=== PATIENT | male | born 1945 | race Caucasian/White ===

== ENCOUNTER → 2016-10-22 16:15 | Emergency (ER) | payer MEDICARE ==
[~2016-10-22 16:15] MED LIST: ACETAMINOPHEN650 M3 PO; ALBUTEROL MININEB NEB; ANTIVERT; APAP325 MG PO; ASPIRIN81 MG PO; BENZONATATE PO; COMBIVENT U/D3 M1 INH; DIAZEPAM PO; FAMOTIDINE PO; FLEXERIL10 M1 PO; FLONASE 0.05% N16 G1; FLONASE16 GM; FOLIC ACID1 MG PO; HYDROCODON-ACE1 EAC7 PO; LIMBREL 500 MG500 MG; LIPITOR20 MG PO; MEDROL DOSEPAK4 MG PO; METOPROLOL TAR25 MG PO; MULTI-VITAMIN1 EAC1 PO; MULTIVITAMINS1 EAC3 PO; NICOTINE TRANSD14 MG TOP; NO MEDICATIONS; NORVASC PO; OMEPRAZOLE20 M2 PO; OMEPRAZOLE40 M1 PO; PERCOCET 5-3251 TAB PO; PREDNISOLONE SO10 MG PO; PREDNISONE PO; PREDNISONE10 MG PO; PRILOSEC PO; PROZAC10 M1 PO; QVAR7.3 G1 INH; RESTORIL7.5 MG PO; SAW PALMETTO160 MG PO; SPIRIVA RESPIMAT4 G1; SUDAFED30 M1 PO; SYMBICORT INH; SYMBICORT80 INH; TESSALON PERLE100 M1 PO; THIAMINE HCL100 M2 PO; TYLENOL325 M1 PO; VENTOLIN5 MG/ML INH; VICODIN 5/500 T1 TAB PO; VICODIN PO
== END | disposition left against medical advice (07) ==
LOC: CED 16:15
DX: Z53.21 Procedure and treatment not carried out due to patient leaving prior to being seen by health care provider (principal)

== ENCOUNTER 2016-10-24 03:30 | Inpatient (IN) | payer MEDICARE ==
--- NOTE | ~2016-10-24 | DS ---
Unit #: [id number] #: [id number] Patient: MALENA FRIEND [id number] [address] [address] [id number] I MR#: [id number] NAME: MALENA FRIEND. ROOM: [facility] Age: 71 Sex: M Admission Date: 10/24/2016 : 1945 Discharge Date: 11/04/2016 Attending Physician: Florian Baker M.D. Primary Care Physician: No Primary Care Physician DISCHARGE SUMMARY ADDENDUM Please see my discharge summary from 11/04/2016. Afterwards, the patient was re-evaluated by physical and occupational therapy. He began having safe ambulation with the use of a walker and, therefore, patient was informed that he was stable to be discharged home. He requested home discharge and, therefore, appropriate arrangements were made for him to be transitioned home with home health to follow at time of discharge as well as a walker to be provided for him prior to discharge. The remainder of his hospital course, medications, do remain unchanged. He will follow up with his primary care physician in seven to ten days for routine care. He was strongly advised to stop drinking alcohol altogether. Dictated by... Kelechi Benton/olu TD: 11/05/2016 11:04 JOB #: [id number] DISCHARGE SUMMARY Page 1 of 1 X Florian Baker MD X DISCHARGE SUMMARY
--- NOTE | ~2016-10-24 | CO ---
Unit #: [id number] #: [id number] Patient: MALENA CARRASCO [id number] [address] [place], [place] [address] [id number] Maulik MR#: [id number] NAME: MALENA CARRASCO. ROOM: 556 Age: 71 Sex: M Admission Date: 10/24/2016 : 1945 Attending Physician: Florian Baker M.D. Primary Care Physician: Primary Care Physician No Consultation Date: 10/28/2016 CONSULTATION REPORT REASON FOR CONSULTATION Abnormal labs. HISTORY OF PRESENTING ILLNESS Mr. Carrasco is a 71-year-old gentleman, who was admitted after a fall, possible syncopal episode, was found to have carotid artery stenosis and is undergoing evaluation to undergo surgery for the same. He also has cardiac evaluation prior to surgery and was cleared for the surgery. The patient has been having trouble swallowing, he says, for the last several years, it is mostly in the throat and choking episodes. He does have lower abdominal pain also, which is chronic. His CEA was elevated to 5.8, and I was called in for colonoscopy evaluation particularly. The patient has chronic constipation, however, denies any bleeding. His last colonoscopy was over 5 years ago, does not remember the findings exactly. PAST MEDICAL HISTORY Significant for COPD, chronic GERD symptoms, chronic back pain, hypertension, smoker, history of drug abuse, multiple surgeries on the back and neck. MEDICATIONS List reviewed. REVIEW OF SYSTEMS A complete 10-point review of systems was done, which is unremarkable other than as mentioned above. PHYSICAL EXAMINATION GENERAL: No acute distress. VITAL SIGNS: Stable. Currently, afebrile. Temperature 97, pulse 90, blood pressure 152/82. HEENT: Pupils equal and reactive. Sclerae anicteric. Oral mucosa moist. NECK: No JVD. No lymphadenopathy. CHEST: Clear to auscultation bilaterally. CARDIOVASCULAR: Regular rate and rhythm. No murmurs. ABDOMEN: Soft, nontender, and nondistended. EXTREMITIES: Without clubbing, cyanosis, or edema. NEUROLOGIC: Intact. SKIN: Warm and dry. DIAGNOSTIC STUDIES LABORATORY RESULTS: Hemoglobin of 12. Chemistries unremarkable. CEA level of 5.8. White count at 17,000. Unit #: [id number] #: [id number] Patient: MALENA CARRASCO ASSESSMENT AND PLAN 1. The patient with chronic constipation and elevated CEA levels at his age. Risk of colon cancer remains have. We will recommend colonoscopy for evaluation. He has been cleared by Cardiology. So, we will plan on doing a colonoscopy tomorrow after prepping him today. 2. Chronic mild dysphagia and chronic gastroesophageal reflux disease symptoms. It will be prudent to have an upper endoscopy at the same time while he undergoes anesthesia. The patient is agreeable for the procedures. We will plan on doing it tomorrow. 3. Carotid artery stenosis. Surgery planned. 4. History of syncopal episode, resolved. Thank you Dr. Baker for this interesting consult. We will follow along. Dictated by... Kelechi Gary/mayda TD: 10/28/2016 19:31 JOB #: [id number] CONSULTATION REPORT Page 1 of 1 X Hilario Ortiz MD X CONSULTATION REPORT
--- NOTE | ~2016-10-24 | ST ---
Unit #: [id number] #: [id number] Patient: MALENA FRIEND [id number] [facility]. [facility] [address] [facility]. [place], [place] [address] [id number] I MR#: [id number] NAME: MALENA FRIEND : 1945 SEX: M STUDY DATE/TIME: 10/28/2016 UNIT: C5B ROOM: 556 STUDY DESCRIPTION: Cardiac stress test Attending Physician: Florian Baker M.D. Primary Care Physician: No Primary Care Physician CARDIOLOGY REPORT EXAM Lexiscan Cardiolite stress test. PROCEDURE Baseline EKG normal sinus rhythm with ventricular rate 73 beats per minute, early repolarization, left ventricular hypertrophy, occasional premature ventricular contractions and occasional premature atrial contractions. Lexiscan is a 4 minute test with Lexiscan being injected within the first minute followed by Cardiolite. EKG during the test showed some nonspecific ST-T wave abnormalities. Nothing acute. The patient had Q waves in V1 and 2. Low voltage in V1 and V2 and in AVL on baseline. Maximum heart rate response was 116 beats per minute with a maximum blood pressure response of 173/84 mmHg. The patient had no complaints of chest pain, palpitations or dizziness. Had increased shortness of breath and fatigue which resolved in recovery phase. Cardiolite was injected after Lexiscan, within the first minute of the test. Radionuclide test pending. Please correlate with nuclear images. Dictated by... Doreen Bobo A.P.R.N. for Kelechi Lopez/leslie TD: 10/28/2016 11:41 JOB #: [id number] CC: [facility] CARDIOLOGY REPORT Page 1 of 1 X Doreen Bobo APRN CARDIOLOGY REPORT
--- NOTE | ~2016-10-24 | DS ---
Unit #: [id number] #: [id number] Patient: MALENA FRIEND [id number] [facility] [address] [facility]. [place], [place] [address] [id number] I MR#: [id number] NAME: MALENA FRIEND. ROOM: [facility] Age: 71 Sex: M Admission Date: 10/24/2016 : 1945 Discharge Date: 11/04/2016 Attending Physician: Florian Baker M.D. Primary Care Physician: No Primary Care Physician DISCHARGE SUMMARY REASON FOR ADMISSION Status post fall, left rib fractures, splenic hematomas, pneumothorax. HISTORY OF PRESENT ILLNESS The patient is a 71-year-old male with a longstanding history of alcohol abuse and COPD, frequent falls at home, who stated that he had a syncopal episode at home. He subsequently began developing left sided chest pain. He presented to the ER for further evaluation. Initial chest x-ray was performed which showed multiple left rib fractures as well as a left apical pneumothorax. Also, was present with subcapsular splenic hematomas. He was admitted for the same. He was placed on telemetry floor in regards to his splenic hematoma. Consultation was placed to [facility]. No operative management was recommended and only observation. In regards to his multiple left rib fractures as well as pneumothorax, consultation was placed to Dr. Chavez, Thoracic Surgery Services. The patient was observed and pneumothorax resolved with no acute intraoperative management. We also placed consultation to Dr. Iglesias, Pulmonary Services, who continued to follow the patient secondary to underlying history of COPD. Secondary to his frequent falls at home, routine radiological studies including CT head as well as ultrasound of carotids were performed. Ultrasound of carotid on right side did yield carotid stenosis and, therefore, consultation was placed to Vascular Services. Dr. Liang performed carotid endarterectomy. Postoperatively, patient otherwise did well. Please see their operative note for details. Secondary to failure to thrive, weight loss as well as anemia, we placed consultation to Dr. Ortiz of Gastroenterology Services. The patient underwent upper and lower endoscopic procedures, both of which did not show any acute process. There was mild gastritis which was noted. Polyps, two, were noted. Both were sent for histopathology. Of note, preoperatively secondary to alcohol abuse, we did place consultation to cardiology services. [facility] did see and Unit #: [id number] #: [id number] Patient: MALENA FRIEND evaluate patient and ultimately underwent stress test evaluation which was negative for acute ischemia. Initially, secondary to alcohol abuse, we did place the patient on CIWA protocol. He did not exhibit any acute DTs while he was present here in the hospital. Secondary to chronic deconditioning, patient residing home alone, frequent falls. Physical and occupational services both recommended subacute rehab at time of discharge. Plans later this afternoon for the patient to be transitioned to rehab once bed available. FINAL DISCHARGE DIAGNOSES 1. Acute hypoxic respiratory failure, now resolved. 2. Status post fall with resultant left sided rib fractures. 3. Small apical pneumothorax, now resolved. 4. Splenic hematomas. 5. Right sided carotid stenosis, status post carotid endarterectomy by Dr. Liang. 6. Anemia, baseline hemoglobin 12. 7. Longstanding history of alcohol abuse. 8. Dysphagia with appropriate dietary modifications for speech therapy. 9. Failure to thrive. 10. Chronic deconditioning. FINAL DISCHARGE MEDICATIONS 1. Tylenol 650 mg p.o. q.6 p.r.n. 2. Prednisone 10 mg p.o. daily x3 days. 3. Symbicort 160/4.5, two puffs b.i.d. 4. DuoNeb aerosol solution q.6 hours scheduled. 5. Restoril 15 mg p.o. q. h.s. 6. Norvasc 5 mg p.o. b.i.d. 7. Lopressor 25 mg p.o. b.i.d. 8. Lipitor 20 mg p.o. q. h.s. 9. Pepcid 20 mg p.o. b.i.d. 10. Multivitamin daily. 11. Aspirin 81 mg p.o. daily. 12. Bradgate 5/325, one to two tablets p.o. q.6 p.r.n. DISCHARGE CONDITION Stable. DISCHARGE DISPOSITION Rehab. Dictated by... Kelechi Benton/olu TD: 11/04/2016 09:50 JOB #: [id number] Unit #: [id number] #: [id number] Patient: MALENA FRIEND DISCHARGE SUMMARY Page 1 of 1 X Florian Baker MD DISCHARGE SUMMARY
--- NOTE | ~2016-10-24 | TH ---
Unit #: [id number] #: [id number] Patient: MALENA FRIEND [id number] [address] [address] [id number] I MR#: [id number] NAME: MALENA FRIEND : 1945 SEX: M STUDY DATE/TIME: 10/28/2016 UNIT: C5B ROOM: 556 STUDY DESCRIPTION: Cardiolite imaging Attending Physician: Florian Baker M.D. Primary Care Physician: No Primary Care Physician CARDIOLOGY REPORT EXAM Cardiolite imaging. PROCEDURE Using technetium 99m labeled Cardiolite, rest and stress SPECT images were obtained. Multiple SPECT images were obtained in various views including horizontal and vertical long axis and short axis views of the left ventricle. Images were obtained by gated SPECT method. The patient was administered 11.76 mCi of Cardiolite at rest and 33.0 mCi of Cardiolite after Lexiscan infusion was completed. On the stress images there is normal perfusion noted. The rest images showed normal perfusion. Comparing rest and stress images there is no stress induced ischemia noted. The left ventricular ejection fraction is calculated to be 67%. There is no focal wall motion abnormality seen. CONCLUSION 1. No stress induced ischemia noted. 2. The left ventricular ejection fraction is calculated to be 67%. 3. There is no focal wall motion abnormality seen. 4. Normal Lexiscan Cardiolite stress test. Dictated by... Kelechi Lopez TD: 10/28/2016 15:59 JOB #: [id number] CARDIOLOGY REPORT Page 1 of 1 X Fadia Akers MD <ELECTRONICALLY SIGNED> 01/18/17 1429 CARDIOLOGY REPORT
--- NOTE | ~2016-10-24 | CO ---
Unit #: [id number] #: [id number] Patient: MALENA FRIEND [id number] [address] [place], [place] [address] [id number] I MR#: [id number] NAME: MALENA FRIEND ROOM: [facility] Age: 71 Sex: M Admission Date: 10/24/2016 : 1945 Attending Physician: Florian Baker M.D. Primary Care Physician: Fidelina Primary Care Physician Consultation Date: 10/24/2016 CONSULTATION REPORT REASON FOR CONSULTATION COPD. CHIEF COMPLAINT Shortness of breath and fall. HISTORY OF PRESENT ILLNESS The patient is a 71-year-old male with past medical history of COPD and depression, gastroesophageal reflux disease, neck surgery, back surgery, and foot surgery, who presented with a complaint of fall and syncopal episode, was x-rayed, showed multiple rib fractures and possible left-sided pneumothorax and I am seeing the patient at the bedside, complaining of shortness of breath, complaining of left-sided rib pain. PAST MEDICAL HISTORY As described above. SOCIAL HISTORY Positive for smoking, no alcohol, no drug abuse. FAMILY HISTORY Liver disease. ALLERGIES Aspirin, Toradol. MEDICATION Omeprazole. PHYSICAL EXAMINATION VITAL SIGNS: Temperature 98. Pulse 67. Respiration 12. Blood pressure 130/70. NEUROLOGICAL: Awake, alert and oriented. No neuro deficit. HEENT: PERRLA plus EOMI. NECK: Supple. No JVD. CHEST: Bilateral air entry. Bilateral mild rhonchi. GI: Nontender. Soft. Bowel sounds positive. EXTREMITIES: No edema. DIAGNOSTIC STUDIES LABORATORY: Labs have been reviewed. IMAGING: Has been reviewed. Unit #: [id number] #: [id number] Patient: MALENA FRIEND ASSESSMENT 1. Fall. 2. Rib fracture. 3. Chronic obstructive pulmonary disease. 4. No pneumothorax on the imaging. PLAN Plan is to continue oxygen and bronchodilator, pain control, incentive spirometry, mobilize the patient, physical therapy. Please see orders for detailed plan. Thank you very much for this consultation. We will follow along. Dictated by... Erin Lutz M.D. Bobby TD: 10/24/2016 23:05 JOB #: [id number] CONSULTATION REPORT Page 1 of 1 X Erin Lutz MD CONSULTATION REPORT
--- NOTE | ~2016-10-24 | CR72 ---
[facility] A Service of [facility] RADIOLOGY TEXT RESULTS PATIENT: MALENA FRIEND LOCATION: [place] [address] : [birth year] UNIT #: [id number] AGE: [address]: Florian Baker MD SEX: M ORDER DR: [id number] [facility] [address] [facility]. [place], [place] [address] [id number] I MR#: [id number] Acc #: [id number] NAME: MALENA FRIEND : 1945 SEX: M STUDY DATE/TIME: 10/24/2016 7:42 UNIT: [facility] ROOM: [facility] STUDY DESCRIPTION: CR Chest Single View Portable Attending Physician: Florian Baker M.D. Ordering Physician: Dean Chavez M.D. Primary Care Physician: Primary Care Physician No MEDICAL IMAGING REPORT This report is preliminary unless electronic signature is present EXAM Portable chest INDICATION Left-sided chest pain and shortness of air since this morning after fall. Recent left rib fracture. Follow up possible pneumothorax seen on chest x-ray 4 hours ago. COMPARISON 10/24/2016. FINDINGS This portable view of the chest shows the left seventh rib fracture again which was noted on the study from 4 hours ago. There is no pneumothorax. The lungs are clear. Heart size normal. Dictated by... Nathanael Li M.D. THIS IS AN ELECTRONICALLY VERIFIED REPORT Nathanael Li M.D. at 10/24/2016 1:53 PM NOMAN/gualberto TD: 10/24/2016 11:12 JOB #: [id number] MEDICAL IMAGING REPORT Page 1 of 1 COPY
--- NOTE | ~2016-10-24 | CO ---
Unit #: [id number] #: [id number] Patient: RANJIT CARRASCO [id number] [address] [place], [place] [address] [id number] Maulik MR#: [id number] NAME: RANJIT CARRASCO ROOM: 556 Age: 71 Sex: M Admission Date: 10/24/2016 : 1945 Attending Physician: Florian Baker M.D. Primary Care Physician: Primary Care Physician No Consultation Date: 10/24/2016 CONSULTATION REPORT REASON FOR CONSULTATION Hyponatremia. Thank you very much for asking us to see this patient in consultation. HISTORY OF PRESENT ILLNESS Mr. Ranjit Carrasco is a 71-year-old male, who has a history of EtOH abuse in the past, who passed out at home, came in fractured ribs, questionable pneumothorax at least on chest x-ray, although, CT was negative, who is known to have a sodium of 124. Because of this, I was asked to see the patient. The patient, reviewing the records, it was noted in 2016 to have a low sodium at that time, he had a normal TSH and normal cortisol level. He again is heavy alcohol user. He also states he was started on Prozac about 4 to 6 weeks ago. He currently very sore from his ribs. He denies any significant chest pain except for the soreness. He only short of breath when he takes deep breaths. He denies any nausea, vomiting, or diarrhea at home or any lower extremity swelling. No recent seizures or strokes. PAST MEDICAL HISTORY History of COPD, history of EtOH abuse, history of pulmonary fibrosis, history of gastroesophageal reflux disease, history of intermittent low sodiums in the past. MEDICATIONS At home included omeprazole, Prozac. Here, he is on Protonix, thiamine, Ativan. ALLERGIES Aspirin and Toradol. SOCIAL HISTORY Positive smoker. Positive ETOH. He lives alone. FAMILY HISTORY Noncontributory. REVIEW OF SYSTEMS As mentioned in the HPI, otherwise negative. PHYSICAL EXAMINATION VITAL SIGNS: Temperature 98.1, pulse 80 to 99, blood pressure 143 to 183 over 80s to 90s. HEENT: Normocephalic and atraumatic. Pupils are equal, round, and Unit #: [id number] #: [id number] Patient: RANJIT CARRASCO reactive to light. Extraocular muscles are intact. Hearing appears to be normal. Mouth clear. No erythema. No exudate. NECK: Supple. No adenopathy. CARDIAC: Regular rhythm without a rub. No S3 or S4. LUNGS: Clear bilaterally. ABDOMEN: Bowel sounds positive. Nontender. Soft. EXTREMITIES: No edema, clubbing, or cyanosis. SKIN: No rashes. NEUROLOGIC: Appears to be grossly intact. : Deferred. DIAGNOSTIC STUDIES LABORATORY RESULTS: Shows sodium 124, potassium 4.7, chloride is 97, bicarb 17, BUN of 8, creatinine 0.7, glucose 97, albumin is 3.7. AST is 50. CPK is 465. EtOH is 69. UA shows specific gravity of 1.027, 1+ protein, 0 to 2 rbc's, 0 to 2 wbc's. ASSESSMENT AND PLAN 1. Hyponatremia. This is a gentleman with decreased sodium. Certainly, it appears not to be overloaded either has hypovolemic hyponatremia versus euvolemic hyponatremia. He was started on normal saline and will continue that for now. We will check a BMP now and certainly depending on what sodium is, depending is on what IV fluids to adjust etc. Certainly, he could have a syndrome of inappropriate antidiuretic hormone secretion possibly related from lung disease versus his Prozac. Would stay away from this type of antidepressant at this time. Due to hyponatremia, we will check a urine osmolality as well as urine sodium. Put him on 1800 mL p.o. fluid restriction and will intermittently check sodiums and adjust. 2. Acidosis. The patient with bicarb of 17. I do not have an ABG on him at this time. I determine if it is a compensation or primary problem, I am go ahead and check urine electrolytes and recheck in a.m. 3. EtOH abuse. Dictated by... Leela Gould M.D. NARESH/mayda TD: 10/26/2016 03:06 JOB #: [id number] CONSULTATION REPORT Page 1 of 1 X Ely Gould MD X CONSULTATION REPORT
--- NOTE | ~2016-10-24 | OR ---
Unit #: [id number] #: [id number] Patient: RANJIT FRIEND [id number] [address] [address] [id number] I MR#: [id number] NAME: RANJIT FRIEND. ROOM: [facility] Date of Procedure: 10/31/2016 Admission Date: 10/24/2016 Surgeon: Markos Liang M.D. : 1945 Attending Physician: Florain Baker M.D. Primary Care Physician: Primary Care Physician No OPERATIVE REPORT PREOPERATIVE DIAGNOSIS Asymptomatic high-grade right internal carotid artery stenosis. POSTOPERATIVE DIAGNOSIS Asymptomatic high-grade right internal carotid artery stenosis. PROCEDURES PERFORMED Right carotid endarterectomy with bovine pericardial patch. Intraoperative carotid duplex scan. [employer] Timothy Waldrop CSA. ANESTHESIA General endotracheal. ESTIMATED BLOOD LOSS 50 mL. COMPLICATIONS None. INDICATIONS FOR PROCEDURE Mr. Ranjit Friend is a 71-year-old white male, who was admitted after a syncopal episode. His evaluation included a carotid duplex scan which demonstrated high-grade stenosis of his right internal carotid artery. His carotid stenosis was not necessarily felt to be the cause of his syncope. After satisfactory preoperative cardiac clearance, he was taken to the operating room to undergo elective right carotid endarterectomy to decrease his risk of neurologic events. DESCRIPTION OF PROCEDURE The patient was placed in supine position with his neck extended and his head turned to the left. His right neck was prepped and sterilely draped. A longitudinal incision was made along the anterior border of the sternocleidomastoid. Dissection continued through the subcutaneous tissue and platysma with the use of electrocautery. The external jugular vein was doubly ligated with 3-0 silk ties and divided. The sternocleidomastoid was reflected laterally to expose the internal jugular vein. The facial vein was doubly ligated with 3-0 silk ties and divided. Additional small branches of the jugular vein were also doubly ligated with 3-0 silk ties and divided. The jugular vein was reflected laterally Unit #: [id number] #: [id number] Patient: RANJIT FRIEND to expose the carotid artery. The common carotid, internal carotid, external carotid, and superior thyroid arteries were dissected free circumferentially. The vagus nerve, hypoglossal nerve, and ansa cervicalis were all identified and protected throughout the dissection. The patient was given heparin 7000 units intravenously, which was allowed to circulate. Vascular clamps were placed in sequence on the internal, external, and common carotid arteries. The superior thyroid artery was controlled with a vessel loop. Stump pressures were measured at over 80 mmHg systolic, which was felt to be adequate to not require a shunt. An 11-blade was used to make a longitudinal incision on the common carotid artery which was extended proximally and distally with Horan scissors. The arteriotomy was extended in each direction beyond any obvious plaque. The endarterectomy started in the common carotid artery, where the proximal end of the plaque was transected with Horan scissors. The endarterectomy continued up into the internal carotid artery, where the distal end of the plaque was feathered to leave a smooth tapered surface. The external carotid artery was everted to remove plaque from its orifice. Additional debris was removed from the lumen of the vessel until it was completely clean. The lumen was also copiously flushed with heparinized saline. A bovine pericardial patch was used to close the arteriotomy. The patch was sewn onto the artery using running 6-0 Prolene circumferentially. Prior to completion of the anastomosis, blood was flushed retrograde and antegrade. Following completion of the anastomosis, vascular clamps were removed in sequence to flush any residual debris through the external carotid circulation. Following removal of the clamps, there was an easily palpable pulse in the internal and external carotid artery. Completion intraoperative duplex scanning revealed a widely patent internal and external carotid artery with no significant residual plaque or narrowing. Protamine 25 mg intravenously was given to reverse the anticoagulation. Additional hemostasis was achieved with use of topical Floseal. The wound was closed in layers using running 2-0 Vicryl and 3-0 Vicryl. The skin was closed using running 4-0 Vicryl subcuticular sutures. Sterile dressings were applied. Sponge and needle count were correct. The patient tolerated the procedure well and was taken to the postanesthesia care unit in satisfactory condition. Dictated by... Kelechi Preston/mayda TD: 11/01/2016 00:05 JOB #: [id number] Unit #: [id number] #: [id number] Patient: RANJIT FRIEND OPERATIVE REPORT Page 1 of 1 X Markos Liang MD PROCEDURE OPERATIVE NOTE
--- NOTE | ~2016-10-24 | CT71 ---
[facility] A Service of [facility] RADIOLOGY TEXT RESULTS PATIENT: MALENA FRIEND LOCATION: C5 [address] : 45 UNIT #: [id number] AGE: [address]: Florian Baker MD SEX: M ORDER DR: [id number] [facility] [address]. [place], [place] [address] [id number] I MR#: [id number] Acc #: [id number] NAME: MALENA FRIEND : 1945 SEX: M STUDY DATE/TIME: 10/24/2016 4:37 UNIT: CEDOF ROOM: [id number] STUDY DESCRIPTION: CT Head Wo Contrast Attending Physician: Marie Schaefer M.D. Ordering Physician: Charissa Wharton M.D. Primary Care Physician: Primary Care Physician No MEDICAL IMAGING REPORT This report is preliminary unless electronic signature is present EXAM CT head, noncontrast, 10/24/2016 HISTORY 71-year-old male in the ED after injury tonight. Fell at home. Left side pain. Rib fractures. Confusion/mental status changes. Dizziness. TECHNIQUE CT examination of the head was performed without IV contrast. This CT examination was performed with one or more of the following radiation dose reduction techniques: automatic exposure control, adjustment of mA and/or kV according to patient size, and iterative reconstruction. COMPARISON CT head, 04/08/2016. FINDINGS No acute intracranial abnormality is demonstrated, there is no visible skull fracture. Mild generalized cerebral atrophy. Moderate diffuse low-attenuation white matter changes, nonspecific but likely related to chronic small vessel disease. This is unchanged. No evidence of intracranial hemorrhage, mass, mass effect, cerebral edema or progressive ventricular enlargement. Fluid and mucosal thickening are visible within the left maxillary sinus. IMPRESSION 1. No acute intracranial abnormality. No visible skull fracture. 2. Stable diffuse chronic changes as noted above. 3. No change since 04/08/2016. [facility] A Service [facility] RADIOLOGY TEXT RESULTS PATIENT: MALENA FRIEND LOCATION: [facility] 5511-28 : 45 UNIT #: [id number] AGE: [address]: Florian Baker MD SEX: M ORDER DR: Dictated by... Yariel Gongora M.D. THIS IS AN ELECTRONICALLY VERIFIED REPORT Yariel Gongora M.D. at 10/24/2016 10:18 PM MACK/gualberto TD: 10/24/2016 06:19 JOB #: [id number] MEDICAL IMAGING REPORT Page 1 of 1 COPY
--- NOTE | ~2016-10-24 | EKG ---
PATIENT: MALENA FRIEND UNIT #: [id number] Ventricular Rate: 85 BPM Atrial Rate: 85 BPM P-R Interval: 162 ms QRS Duration: 86 ms Q-T Interval: 388 ms QTC Calculation(Bezet): 461 ms P [place]: 71 degrees Calculated R [place]: -56 degrees Calculated T [place]: 81 degrees Diagnosis Line: Normal sinus rhythm Diagnosis Line: Left axis deviation Diagnosis Line: Nonspecific ST abnormality Diagnosis Line: Abnormal ECG Diagnosis Line: When compared with ECG of 06-JUN-2016 15:51, Diagnosis Line: Non-specific change in ST segment in Anterior Diagnosis Line: leads Diagnosis Line: Confirmed by YVAN GELLER MD ([id number]) on Diagnosis Line: 10/25/2016 10:59:19 PM INTERPRETING MD: CARLEY
--- NOTE | ~2016-10-24 | CR72 ---
[facility] A Service of [facility] RADIOLOGY TEXT RESULTS PATIENT: MALENA FRIEND LOCATION: [facility] : 45 UNIT #: [id number] AGE: [address]: Charissa Wharton MD SEX: M ORDER DR: [id number] [address] [place], [place] [address] [id number] E MR#: [id number] Acc #: [id number] NAME: MALENA FRIEND : 1945 SEX: M STUDY DATE/TIME: 10/24/2016 3:03 UNIT: [facility] ROOM: STUDY DESCRIPTION: CR Chest Single View Portable Attending Physician: Charissa Wharton M.D. Ordering Physician: Charissa Wharton M.D. Primary Care Physician: Primary Care Physician No MEDICAL IMAGING REPORT This report is preliminary unless electronic signature is present EXAM Chest x-ray, 10/24/2016 HISTORY 71-year-old male in the ED complaining of left side pain and shortness of air after a fall today. History of COPD. TECHNIQUE AP portable upright chest series. FINDINGS The examination shows acute, mildly displaced fractures through the lateral left seventh and eighth ribs. There is also an old healed left seventh rib fracture. A tiny left apical pneumothorax is suspected. Shallow lung expansion is noted with mild bibasilar atelectasis. No visible pleural effusion. COPD with chronic scarring right lung base. Heart size normal. IMPRESSION 1. Acute left seventh and eighth rib fractures. 2. Possible tiny left apical pneumothorax. 3. COPD. Bibasilar scarring and atelectasis. Dictated by... Yariel Gongora M.D. THIS IS AN ELECTRONICALLY VERIFIED REPORT Yariel Gongora M.D. at 10/24/2016 5:59 AM MACK/cj [facility] A Service of [facility] RADIOLOGY TEXT RESULTS PATIENT: MALENA FRIEND LOCATION: [facility] : 45 UNIT #: [id number] AGE: [address]: Charissa Wharton MD SEX: M ORDER DR: TD: 10/24/2016 03:47 JOB #: [id number] MEDICAL IMAGING REPORT Page 1 of 1 COPY
--- NOTE | ~2016-10-24 | CR72 ---
[facility] A Service of [facility] RADIOLOGY TEXT RESULTS PATIENT: MALENA FRIEND LOCATION: [facility] : 45 UNIT #: [id number] AGE: [address]: Florian Baker MD SEX: M ORDER DR: [id number] [place] [id number] [place], [place] [address] [id number] I MR#: [id number] Acc #: [id number] NAME: MALENA FRIEND : 1945 SEX: M STUDY DATE/TIME: 10/25/2016 4:36 UNIT: [facility] ROOM: [facility] STUDY DESCRIPTION: CR Chest Single View Portable Attending Physician: Florian Baker M.D. Ordering Physician: Florian Baker M.D. Primary Care Physician: Primary Care Physician No MEDICAL IMAGING REPORT This report is preliminary unless electronic signature is present EXAM Chest x-ray 10/25/2016. HISTORY 71-year-old male admitted through the ED yesterday after fall, rib fractures. Short of air, left side chest pain. Follow up pulmonary status. TECHNIQUE AP portable chest x-ray. FINDINGS Acute fractures of the left seventh and eighth ribs and old healed left seventh rib fracture. Tiny left apical pneumothorax seen on the initial study yesterday is not identified today. Severe pulmonary emphysema with moderate multifocal pulmonary fibrosis. Mild right lung base atelectasis. Heart size normal. No change since the last study obtained yesterday. IMPRESSION Once stable chest x-ray, unchanged since yesterday. Dictated by... Yariel Gongora M.D. THIS IS AN ELECTRONICALLY VERIFIED REPORT Yariel Gongora M.D. at 10/30/2016 9:15 AM MACK/talia TD: 10/25/2016 06:43 JOB #: [id number] [facility] A Service of [facility] RADIOLOGY TEXT RESULTS PATIENT: MALENA FRIEND LOCATION: [place] [address] : 45 UNIT #: [id number] AGE: [address]: Florian Baker MD SEX: M ORDER DR: MEDICAL IMAGING REPORT Page 1 of 1 COPY
--- NOTE | ~2016-10-24 | CT55 ---
[facility] A Service of [facility] RADIOLOGY TEXT RESULTS PATIENT: MALENA FRIEND LOCATION: [facility] 55- : 45 UNIT #: [id number] AGE: [address]: Florian Baker MD SEX: M ORDER DR: [id number] [place] [address] [facility]. [place], [place] [address] [id number] I MR#: [id number] Acc #: [id number] NAME: MALENA FRIEND : 1945 SEX: M STUDY DATE/TIME: 10/26/2016 15:09 UNIT: [facility] ROOM: [facility] STUDY DESCRIPTION: CT Chest W Con Attending Physician: Florian Baker M.D. Ordering Physician: Florian Baker M.D. MEDICAL IMAGING REPORT This report is preliminary unless electronic signature is present EXAM CT chest with IV contrast. HISTORY Right rib pain after fall and right rib injury 2 days ago. TECHNIQUE This CT exam was performed with one or more of the following radiation dose reduction techniques: automatic exposure control, adjustment of mA and/or kV according to patient size, and iterative reconstruction. FINDINGS CT chest with IV contrast demonstrates moderately severe bilateral emphysema. Small left pleural effusion. Moderate subpleural interstitial scarring bilaterally. No adenopathy. No pneumothorax. Fractures of the lateral left sixth, seventh and eighth ribs with up to 5 mm displacement of the fracture fragments. There are also fractures of the posterior left sixth and seventh ribs, displaced up to 7 mm. Mild compression fracture of the superior endplate of T11 and moderate compression fracture of the superior endplate of T12, of uncertain age. These are stable compared to CT Abdomen, 10/24/2016. IMPRESSION 1. Acute fractures of the lateral left sixth, seventh and eighth ribs and acute fractures of the posterior left sixth and seventh ribs with fracture fragment displacement up to 7 mm. No pneumothorax. 2. Small left pleural effusion. 3. Moderately severe bilateral emphysema and multifocal subpleural interstitial scarring bilaterally. 4. No adenopathy. 5. Compression fractures of the superior endplates of T11 and T12 of STS. [facility] A Service of [facility] & [facility] RADIOLOGY TEXT RESULTS PATIENT: MALENA FRIEND LOCATION: [place] [address] : [birth year] UNIT #: [id number] AGE: [address]: Florian Baker MD SEX: M ORDER DR: uncertain age, are stable compared to CT abdomen yesterday. Dictated by... Sterling Gloria M.D. THIS IS AN ELECTRONICALLY VERIFIED REPORT Sterling Gloria M.D. at 10/27/2016 10:55 PM CLEVE/vinicius TD: 10/26/2016 18:01 JOB #: [id number] MEDICAL IMAGING REPORT Page 1 of 1 COPY
--- NOTE | ~2016-10-24 | CO ---
Unit #: [id number] #: [id number] Patient: RANJIT CARRASCO [id number] [place], [place] [address] [id number] I MR#: [id number] NAME: RANJIT CARRASCO ROOM: 55 Age: 71 Sex: M Admission Date: 10/24/2016 : 1945 Attending Physician: Florian Baker M.D. Consultation Date: 10/27/2016 CONSULTATION REPORT REASON FOR CONSULTATION Carotid stenosis. HISTORY OF PRESENT ILLNESS Mr. Ranjit Carrasco is a 71-year-old gentleman, who was admitted through the emergency room after experiencing a brief syncopal episode. He states that he blacked out suddenly and lost consciousness for 1 to 2 seconds. When he fell, he apparently fractured the ribs of his left chest and sustained a small pneumothorax as well as a splenic hematoma. He states that he has had several small blackouts in the past. He has never had a stroke that he is aware of. He denies any focal extremity weakness or numbness, facial droop, slurred speech, or vision loss to suggest transient ischemic attacks or amaurosis fugax associated with this syncopal spells. As part of his evaluation, he had a carotid duplex scan, which indicated greater than 70% stenosis of his right internal carotid artery and 50% to 69% stenosis of his left internal carotid artery. He was never aware of his carotid disease previously. He is otherwise feeling well at the time of his evaluation. PAST MEDICAL HISTORY COPD, gastroesophageal reflux disease, depression, ethanol abuse, chronic pain syndrome, cervical and lumbar degenerative disk disease. PAST SURGICAL HISTORY Multiple cervical spine surgeries, lumbar disk surgery, and foot surgery. MEDICATIONS Omeprazole 20 mg p.o. daily, Tylenol 650 mg p.o. every 6 hours as needed, Prozac 10 mg p.o. daily, Symbicort 80/4.5 two puffs b.i.d., and saw palmetto 320 mg p.o. daily. ALLERGIES Toradol. He states that aspirin upsets his stomach. SOCIAL HISTORY He is single and lives by himself in [place]. He smokes 1/2 pack of cigarettes per day, but had smoked as much as two packs per day in the past. He drinks a 6 pack of beer each day. FAMILY HISTORY He is unaware of his father's health history. He states that his mother of congestive heart failure. Unit #: [id number] #: [id number] Patient: RNAJIT CARRASCO REVIEW OF SYSTEMS Positive for chronic shortness of breath. He does not use oxygen. Otherwise, 10-point review of systems is negative. PHYSICAL EXAMINATION VITAL SIGNS: Temperature 97.7, pulse 90, respirations 20, blood pressure 152/82. GENERAL APPEARANCE: Thin elderly white male. Relatively stoic. Cooperative. Fair historian. No acute distress. HEENT: Extraocular movements intact. No xanthelasma of the eyelids. Oral mucosa is pink and moist. NECK: No cervical bruits. No JVD. No thyroid enlargement. LUNGS: Mild expiratory wheezes bilaterally. Otherwise clear. No use of accessory respiratory muscles. HEART: Regular rate and rhythm without murmur. ABDOMEN: Soft, nondistended, and nontender. No palpable masses. No palpable hepatomegaly or splenomegaly. EXTREMITIES: Hands and feet are pink and warm. No pedal edema. Palpable radial and femoral pulses bilaterally. DIAGNOSTIC STUDIES IMAGING STUDIES: He had a head CT scan performed on 10/24/2016, which I reviewed. That study shows no obvious intracranial abnormality. There was no evidence of skull fracture. Diffuse chronic nonspecific changes related to small-vessel disease. He had a carotid duplex scan performed on 10/24/2016, which I reviewed. That study indicates greater than or equal to 70% stenosis of his right internal carotid artery and 50% to 69% stenosis of his left internal carotid artery. Both of his vertebral arteries are patent with antegrade flow. IMPRESSION 1. Asymptomatic high-grade right internal carotid artery stenosis. 2. Asymptomatic moderate left internal carotid artery stenosis. 3. Recent syncopal episode. His syncope is unlikely to be related to his carotid disease. He has not had any focal neurologic symptoms to suggest transient ischemic attacks or amaurosis fugax. 4. Recent chest trauma with left rib fractures and splenic hematoma. 5. Chronic obstructive pulmonary disease. 6. Depression. 7. History of ethanol abuse. 8. Gastroesophageal reflux disease. 9. Cervical degenerative disk disease. 10. Lumbar degenerative disk disease. 11. Chronic pain syndrome. PLAN My recommendation would be to start enteric-coated aspirin 81 mg p.o. daily as anti-platelet therapy if he is able to tolerate it. He states that aspirin has upset his stomach in the past, but he is willing to try the coated aspirin to see if he can tolerate it. I would also recommend initiation of statin therapy, which has been shown to be beneficial in patients with carotid disease. I reviewed his liver function tests and they are normal. I discussed the risks and benefits of carotid endarterectomy with him. He Unit #: [id number] #: [id number] Patient: RANJIT CARRASCO has agreed to consider right carotid endarterectomy. I will request preoperative cardiac clearance to ensure that he is a suitable candidate for surgery. Dictated by... Kelechi Preston/mayda TD: 10/28/2016 04:37 JOB #: [id number] CONSULTATION REPORT Page 1 of 1 X Markos Liang MD X CONSULTATION REPORT
--- NOTE | ~2016-10-24 | CT52 ---
[facility] A Service of [facility] RADIOLOGY TEXT RESULTS PATIENT: MALENA FRIEND LOCATION: [facility] : 45 UNIT #: [id number] AGE: [address]: Florian Baker MD SEX: M ORDER DR: [id number] [place] [id number] [facility]. [place], [place] [address] [id number] I MR#: [id number] Acc #: [id number] NAME: MALENA FRIEND : 1945 SEX: M STUDY DATE/TIME: 10/24/2016 4:41 UNIT: CEDOF ROOM: [id number] STUDY DESCRIPTION: CT Cervical Spine Wo Cont Attending Physician: Marie Schaefer M.D. Ordering Physician: Charissa Wharton M.D. Primary Care Physician: Primary Care Physician No MEDICAL IMAGING REPORT This report is preliminary unless electronic signature is present EXAM CT cervical spine 10/24/2016 HISTORY 71-year-old male in the ED after injury. Fell at home tonight. He complains of neck pain. Left rib fractures. Prior cervical spine surgeries. TECHNIQUE Axial CT imaging of the cervical spine was performed from the skull base through the lower portion of T2. Sagittal and coronal images were reconstructed. This CT examination was performed with one or more of the following radiation dose reduction techniques: automatic exposure control, adjustment of mA and/or kV according to patient size, and iterative reconstruction. COMPARISON CT cervical spine 03/13/2016. FINDINGS No fracture or other acute osseous abnormality is demonstrated. Extensive prior anterior and posterior cervical spine fusion surgery from C3-T1. Posterior wire fixation from the C3-C7 levels. Cervical vertebral alignment is normal, with the exception of grade 1 anterolisthesis at C2-3 that is unchanged. Multilevel central canal narrowing and bilateral osseous neural foraminal stenosis without change since the prior exam. IMPRESSION 1. No fracture or other acute osseous abnormality. 2. Extensive postoperative changes of cervical spine fusion surgery as noted above. 3. Grade 1 anterolisthesis at C2-3. [facility] A Service of [facility] RADIOLOGY TEXT RESULTS PATIENT: MALENA FRIEND LOCATION: [facility] 556-01 : 45 UNIT #: [id number] AGE: [address]: Florian Baker MD SEX: M ORDER DR: 4. No significant change since the previous study of 03/13/2016. Dictated by... Yariel Gongora M.D. THIS IS AN ELECTRONICALLY VERIFIED REPORT Yariel Gongora M.D. at 10/24/2016 10:18 PM MACK/gualberto TD: 10/24/2016 06:21 JOB #: [id number] MEDICAL IMAGING REPORT Page 1 of 1 COPY
--- NOTE | ~2016-10-24 | FU ---
[facility] Nutrition Therapy DATE: 11/04/16 Patient: MALENA FRIEND Physician: CHARMAINE Address: [address] [facility] Room/Bed: [address] [place] [address], Zip: [place] [address] Admit Date: 10/24/16 Date of : [birth year] Height: 6 2 Weight: 125 57.1 NUTRITION MONITORING/FOLLOW-UP: Reason: PT SEEN FOR FOLLOW-UP DX: (L) RIB FX S/P FALL, COPD Anthropometrics: 6'2", WT: 127# (58 KG), BMI: 16.3 -PT REPORTS WEIGHT IS ~127# Labs: GLU: 145, BUN: 26, CA+:8.3, NA+: 133 Meds: KCL, LIPITOR, LACTULOSE, PEPCID, LAXATIVE OF CHOICE, THIAMINE, PREDNISONE, ZOFRAN I&O's: 360/- Skin: PREVIOUSLY NOTED Estimated Nutrition Needs: INCREASED NUTRIENT NEEDS 2' PT UNDERWEIGHT, CURRENT CONDITION, WEIGHT LOSS NOTED IN RD ASSESSMENT 10/24/16 Assessment: CHART REVIEWED AND EVENTS NOTED. PT SEEN FOR FOLLOW-UP. PT REPORTS GOOD PO INTAKE AND APPETITE, NOTING NO C/O N/V/D. PT HAD BREAKFAST TRAY AT BEDSIDE-NOTED PT ATE 100%. PT REPORTS RECEIVING AND DRINKING ENSURE SHAKES BID. THIS RD ENCOURAGED ADEQUATE KCAL AND PROTEIN INTAKE, PT AGREED. PT REPORTED NO DIET QUESTIONS. PLANS IN PLACE FOR PT TO D/C TO REHAB TODAY. Dx: INADEQUATE PROTEIN-ENERGY INTAKE R/T DECREASED APPETITE, MEDICATION USAGE, ?ETOH ABUSE, PMH AEB LOW BMI NOTED, ~20#/12% WEIGHT LOSS NOTED IN 2 MONTHS.-ACTIVE Intervention: 1. HH DIET 2. ENSURE SHAKES BID Monitoring, Evaluation and Goals: 1. ORAL INTAKE; CONSUME >50% OF MEALS AND SUPPLEMENTS W/NO C/O N/V/D-MET 2. LABS; WNL-ACTIVE 3. WEIGHTS; PROMOTE GRADUAL WEIGHT GAIN; PREVENT FURTHER WEIGHT LOSS-ACTIVE MONITOR: -PO INTAKE/APPETITE -WEIGHTS -SUPPLEMENT INTAKE Recommendations: 1. CONTINUE TO ENCOURAGE ADEQUATE KCAL AND PROTEIN INTAKE [facility] Nutrition Therapy DATE: 11/04/16 Patient: MALENA FRIEND Physician: CHARMAINE Address: [address] Room/Bed: [address] [place] [address], Zip: [place] [address] Admit Date: 10/24/16 Date of : [birth year] Height: 6 2 Weight: [address] WILL F/U PER PROTOCOL PT IS MILDLY COMPROMISED Respectfully, YO FERNANDEZ MS, RD, LD [employer] [facility] [employer] cc: client file
--- NOTE | ~2016-10-24 | OR ---
Unit #: [id number] #: [id number] Patient: MALENA FRIEND [id number] [place], [place] [address] [id number] Maulik MR#: [id number] NAME: MALENA FRIEND. ROOM: 556 Date of Procedure: 10/29/2016 Admission Date: 10/24/2016 Surgeon: Hilario Ortiz M.D. : 1945 Attending Physician: Florian Baker M.D. OPERATIVE REPORT PROCEDURES PERFORMED Esophagogastroduodenoscopy with biopsy and colonoscopy with snare polypectomy. INDICATIONS FOR PROCEDURE The patient with elevated CEA level suggestive possible malignancy in the colon, chronic constipation, also with dysphagia, undergoing evaluation with upper endoscopy and colonoscopy. MEDICATIONS Monitored anesthesia. POSTOPERATIVE FINDINGS 1. Normal esophagus. 2. Mild chronic appearing gastritis, biopsies taken. 3. Normal duodenum and distal duodenum. 4. Colonoscopy completed to cecum. Prep was adequate. 5. Two small polyps, one in transverse and one in sigmoid, both snared and sent for histopathology. 6. No large polyps or masses were seen. 7. Small hemorrhoids. PLAN Continue with PPI and current treatment. DESCRIPTION OF PROCEDURE The patient was explained of the procedure, risks, and benefits along with risks and benefits of anesthesia. He was brought to the endoscopy room. Propofol anesthesia was given. Bite block was placed. The scope was passed down the mouth into the esophagus, stomach, duodenum, and distal duodenum. Findings as described. Biopsies taken. Gently, I pulled the scope out of the patient's mouth. He tolerated this part very well. At this time, he was turned around and repositioned for colonoscopy. Rectal exam was done, which was normal. Colonoscope was lubricated, passed up the rectum, advanced under direct vision all the way to the cecum. Cecum was identified by ileocecal valve and appendiceal orifice. I then started to pull the scope out carefully looking. Two small polyps as described. No large polyps or masses seen. I retroflexed in the rectum, small hemorrhoids seen. Gently, the scope was pulled out. He tolerated it well. No major complications were seen. Unit #: [id number] #: [id number] Patient: MALENA FRIEND Dictated by... Kelechi Gary/mayda TD: 10/29/2016 22:49 JOB #: [id number] OPERATIVE REPORT Page 1 of 1 X Hilario Ortiz MD PROCEDURE OPERATIVE NOTE
--- NOTE | ~2016-10-24 | CR72 ---
[facility] A Service of [facility] RADIOLOGY TEXT RESULTS PATIENT: MALENA FRIEND LOCATION: [facility] : 45 UNIT #: [id number] AGE: [address]: Florian Baker MD SEX: M ORDER DR: [id number] [place] [address] [place], [place] [address] [id number] I MR#: [id number] Acc #: [id number] NAME: MALENA FRIEND : 1945 SEX: M STUDY DATE/TIME: 10/24/2016 15:01 UNIT: [facility] ROOM: [facility] STUDY DESCRIPTION: CR Chest Single View Portable Attending Physician: Florian Baker M.D. Ordering Physician: Florian Baker M.D. Primary Care Physician: No Primary Care Physician MEDICAL IMAGING REPORT This report is preliminary unless electronic signature is present EXAM Portable chest, 10/24. COMPARISON Same date. HISTORY Syncopal episode after a fall today. TECHNIQUE AP view is obtained. FINDINGS The heart size is normal. Lungs show chronic emphysematous interstitial lung disease. No acute infiltrates are seen. There are postop changes of cervical fusion. CONCLUSION Chronic interstitial and emphysematous lung disease. No change from the prior film. Dictated by... Akhil Arceo M.D. THIS IS AN ELECTRONICALLY VERIFIED REPORT Akhil Arceo M.D. at 10/25/2016 7:10 AM SHIRA/kelly TD: 10/24/2016 16:33 JOB #: [id number] [facility] A Service of [facility] RADIOLOGY TEXT RESULTS PATIENT: MALENA FRIEND LOCATION: [facility] : 45 UNIT #: [id number] AGE: [address]: Florian Baker MD SEX: M ORDER DR: MEDICAL IMAGING REPORT Page 1 of 1 COPY
--- NOTE | ~2016-10-24 | MAL ---
[facility] Nutrition Therapy DATE: 10/24/16 Patient: MALENA Andrade HUGOSUN Physician: CHARMAINE Address: [address] [place] [address] Room/Bed: [address] [place] [address], Zip: [place] [address] Admit Date: 10/24/16 Date of : [birth year] Height: 6 2 Weight: 150 68.03 PHYSICAL MALNUTRITION ASSESSMENT Energy Intake, Chronic Illness Moderately reduced: <75% needs for >/=1 month Severely reduced: </=50% needs for >/=1 month Energy Intake Comment: PT REPORTS DECREASED PO INTAKE 2' DECREASED APPETITE D/T MEDICATIONS PAST MONTH AND A HALF Weight Loss, Acute Injury/Illness Severe: >7.5% past 3 months Weight Loss, Comment: PT REPORTS LOSING ~20# PAST 2 MONTHS/12% SEVERE WEIGHT LOSS NOTED Physical Findings Body Fat and Muscle Mass Moderate: (suggested) some loss of subqutaneous fat and/or muscle mass Severe: (obvious) significant muscle wasting and/or loss of subcutaneous fat Physical Findings Comment: PER RD OBSERVATION, HOLLOW/SCOOPING TEMPORALS NOTED. PROTRUDING/PROMINENT SHOULDER, CLAVICLE AND SCAPULA OBSERVED. NO MUSCLE DEFINITION BICEPS/TRICEPS AND CALVES. EYES PRONOUNCED, HOLLOW AND DEPRESSED. PROMINENT CHEST WELL DRY HAIR, MOUTH, SKIN AND NAILS. Malnutrition Survey Results: MOD/SEVERELY COMPROMISED Malnutrition Etiology Summary: Chronic illness moderate Chronic illness severe Malnutrition risk score: SEE RD ASSESSMENT 10/24/16 Respectfully, YO FERNANDEZ MS, RD, LD Food and Nutritional Services [facility] cc: client file
--- NOTE | ~2016-10-24 | CO ---
Unit #: [id number] #: [id number] Patient: MALENA FRIEND [id number] [address] [place], [place] [address] [id number] I MR#: [id number] NAME: MALENA FRIEND ROOM: 55 Age: 71 Sex: M Admission Date: 10/24/2016 : 1945 Attending Physician: Florian Baker M.D. Primary Care Physician: Primary Care Physician No Consultation Date: 10/27/2016 CONSULTATION REPORT REASON FOR CONSULT Preoperative clearance. HISTORY OF PRESENT ILLNESS This is a 71-year-old white male, new to our group, with a past medical history of COPD with continued tobacco abuse, chronic neck and back pain, and alcohol abuse. The patient states he may have high blood pressure as his blood pressure has been elevated during hospitalization. However, he was on no antihypertensive medications at home. He believes he had a stress test approximately 25 to 30 years ago that was normal. He denies any previous cardiac catheterization. He was recently started on Prozac approximately a month ago for depression. The medication was ultimately stopped because he developed decreased appetite and 20-pound weight loss. He denies hyperlipidemia, diabetes mellitus, myocardial infarction, or cerebrovascular accident. He presented to the emergency department on 10/24/2016 with complaints of fall and pain on the left side of his chest. He states that he was getting up to go to the bathroom and became dizzy. He fell and may have lost consciousness for 1 or 2 seconds. He admits to previous falls, but none recently besides this one. He denies palpitations. There is no diaphoresis, nausea, or vomiting. The patient states that he has not had any chest pain or discomfort with rest or exertion. He does have some shortness of breath with exertion, but he attributes this to his COPD and smoking. It is no worse than normal. He denies any lower extremity edema, PND, or orthopnea. In the emergency department, his temperature was 98, pulse 87, respirations 19, blood pressure 161/95, and O2 saturation 97% on room air. Initial labs revealed a sodium of 124. Imaging revealed multiple left rib fractures. He was also found to have a small left pneumothorax and a small splenic hematoma. He was admitted for further management. Thoracic Surgery was consulted and the pneumothorax resolved spontaneously. No chest tube was placed. Nephrology was consulted due to low sodium. Pulmonary was consulted for management of COPD. The patient underwent workup for falls and had an ultrasound of the bilateral carotids. He was found to have greater than 70% stenosis in the right internal carotid artery. Vascular Surgery was consulted and the patient is scheduled to have a carotid endarterectomy. Cardiology was consulted for preoperative clearance. PAST MEDICAL HISTORY 1. COPD. 2. GERD. Unit #: [id number] #: [id number] Patient: MALENA FRIEND 3. Anxiety. 4. Chronic back and neck pain. 5. Probable hypertension. 6. Alcohol abuse. 7. Active tobacco abuse. 8. History of polysubstance abuse with IV drug use, approximately 25 years ago. PAST SURGICAL HISTORY 1. Neck surgery x4. 2. Back surgery. 3. Left foot surgery. HOME MEDICATIONS Omeprazole 20 mg p.o. daily; Tylenol 650 mg p.o. every 6 hours p.r.n. for pain; Prozac 10 mg p.o. q.h.s., the patient quit taking a few days ago; Symbicort 80/4.5 mcg 2 puffs inhalation b.i.d.; saw palmetto 320 mg p.o. daily. ALLERGIES Toradol, adverse reaction to aspirin with GI upset and nausea. SOCIAL HISTORY The patient lives in a private residence. He uses a walker to ambulate due to issues with his balance. He actively smokes half a pack of cigarettes per day and has smoked for 50 years. He drinks approximately 6 beers every other day. He does have a history of polysubstance abuse and states that he used IV drugs approximately 25 years ago, but none recently. FAMILY HISTORY His mother had congestive heart failure. REVIEW OF SYSTEMS 10-point review of systems negative except for details noted above in HPI. PHYSICAL EXAMINATION VITAL SIGNS: Temperature 97.7, pulse 90, blood pressure 152/82. CONSTITUTIONAL: This is a 71-year-old white male, who is frail and malnourished. SKIN: Warm and dry. NECK: Supple. No jugular vein distention. No hepatojugular reflux. Normal carotid upstrokes. No carotid bruits auscultated. HEART: S1 and S2. Regular rate and rhythm. No murmurs, rubs, or gallops. LUNGS: Bilateral breath sounds have good air entry throughout all lung llamas. Respirations even and nonlabored. No rales, rhonchi, or wheezes. ABDOMEN: Soft, nontender, and nondistended. Positive bowel sounds auscultated x4 quadrants. No ascites noted. EXTREMITIES: Bilateral lower extremities have no pretibial pitting edema. DP and PT pulses are 2+. Capillary refill less than 3 seconds. DIAGNOSTIC STUDIES LABORATORY RESULTS: White blood cell count 7.6, hemoglobin 12.6, hematocrit 38, platelets 197. Sodium 131, potassium 4.4, chloride 99, CO2 of 27, BUN 15, creatinine 0.7, glucose 122. INR 1.0. AST 37, ALT 25, alkaline phosphatase 62. CEA 5.8. A1c 5.2. Total cholesterol 113, triglycerides 70, LDL 49, HDL 50. TSH 1.21. Unit #: [id number] #: [id number] Patient: MALENA FRIEND IMAGING STUDIES: Imaging on admission revealed multiple left rib fractures, small left splenic hematoma, and small left pneumothorax. CARDIOVASCULAR STUDIES: EKG reveals sinus rhythm with left axis deviation. Nonspecific ST-T wave changes. IMPRESSION 1. Status post fall with possible syncope. 2. Multiple left rib fractures. 3. Splenic hematoma. 4. Small left pneumothorax, resolved. 5. Hypertension. 6. Hyponatremia. 7. Right carotid stenosis. 8. Chronic obstructive pulmonary disease with continued tobacco abuse. 9. Weight loss of 20 pounds, possibly from Prozac versus malignancy. CEA 5.8. 10. Alcohol abuse. 11. History of polysubstance abuse with IV drug use, approximately 25 years ago. PLAN 1. The patient presented to the hospital after sustaining a fall, which could be cardiac related. We will obtain orthostatic vital signs and a 2D echocardiogram. 2. Carotid ultrasound revealed a high-grade stenosis in the right internal carotid artery. Vascular Surgery is following. 3. The patient denies chest pain, but does have an abnormal EKG. Underlying ischemic heart disease cannot be excluded. He will be scheduled for Lexiscan Cardiolite stress test tomorrow. 4. He will be placed on aspirin and statin. Norvasc will be continued as ordered. 5. He has been advised to refrain from tobacco and alcohol use. 6. The patient's weight loss is concerning, but CT of the chest reveals no lung nodules. Consider further workup for weight loss. Preoperative clearance for surgery is pending stress test and 2D echocardiogram. Dictated by... Miguelina Teague APRN for Kelechi Jeffers TD: 10/27/2016 20:59 JOB #: [id number] CONSULTATION REPORT Page 1 of 1 X X CONSULTATION REPORT
--- NOTE | ~2016-10-24 | CR281 ---
[facility] A Service of [facility] & [facility] RADIOLOGY TEXT RESULTS PATIENT: MALENA FRIEND LOCATION: [place] [address] : [birth year] UNIT #: [id number] AGE: [address]: Florian Baker MD SEX: M ORDER DR: [id number] [place] [id number] [facility] [place], [place] [address] [id number] I MR#: [id number] Acc #: [id number] NAME: MALENA FRIEND : 1945 SEX: M STUDY DATE/TIME: 10/24/2016 14:59 UNIT: [facility] ROOM: [facility] STUDY DESCRIPTION: CR Wrist Min 3 View Lt Attending Physician: Florian Baker M.D. Ordering Physician: Florian Baker M.D. Primary Care Physician: No Primary Care Physician MEDICAL IMAGING REPORT This report is preliminary unless electronic signature is present EXAM Left wrist, 3 views. INDICATION Fall today and left wrist pain. COMPARISON STUDIES No comparisons. FINDINGS There is no evidence for acute fracture. Chondrocalcinosis involving the TFCC. There is some mild narrowing of the STT complex. No evidence for dislocation. IMPRESSION No evidence for a fracture. Structures are unremarkable. Dictated by... Cuong Zamora M.D. THIS IS AN ELECTRONICALLY VERIFIED REPORT Cuong Zamora M.D. at 10/25/2016 9:33 AM NUHA/kelly TD: 10/24/2016 17:27 JOB #: [id number] MEDICAL IMAGING REPORT Page 1 of 1 COPY
--- NOTE | ~2016-10-24 | CO ---
Unit #: [id number] #: [id number] Patient: MALENA FRIEND [id number] [address] [place], [place] [address] [id number] I MR#: [id number] NAME: MALENA FRIEND ROOM: 556 Age: 71 Sex: M Admission Date: 10/24/2016 : 1945 Attending Physician: Florian Baker M.D. Primary Care Physician: Fidelina Primary Care Physician Requesting Physician: Marie Schaefer M.D. Consultation Date: 10/24/2016 CONSULTATION REPORT REASONS FOR CONSULTATION 1. Small splenic hematoma after fall. 2. Multiple left rib fractures. Thank you very much for asking us to see Mr. Friend. He is a 71-year-old white male who has a history of COPD and regular alcohol use, who, earlier this morning, states he "blacked out" and fell and struck his left lower rib cage. He was brought to the emergency room where he had x-rays that showed multiple left lower lateral rib fractures. There was a suspected tiny left apical pneumothorax. He also was found on CT scan to have a tiny subcapsular splenic hematoma. He denies any abdominal pain. He has had no GI bleeding. No nausea, vomiting. We are asked to see him at this time for further evaluation and treatment. PAST MEDICAL HISTORY COPD, depression, GERD. PAST SURGICAL HISTORY Foot surgery, neck surgery, back surgery. SOCIAL HISTORY Positive tobacco use and regular alcohol use. The patient denies any shakes or withdrawal symptoms if he does not drink. FAMILY HISTORY Liver disease. ALLERGIES Aspirin, Toradol. MEDICATIONS AT HOME Omeprazole. PHYSICAL EXAMINATION GENERAL APPEARANCE: A well-developed, well-nourished white male in no apparent distress, afebrile. VITAL SIGNS: Stable. NECK: Supple. No thyromegaly, adenopathy. BACK: No CVA or spinous tenderness. HEENT: Sclerae nonicteric. Extraocular movements are intact. HEART: Regular rate and rhythm without murmur heard. ABDOMEN: Flat, soft, nontender. However, with palpation of the left lower chest wall. He does have tenderness and some instability of the ribs in that area where he is the most tender. Unit #: [id number] #: [id number] Patient: MALENA FRIEND EXTREMITIES: No calf tenderness. No erythema. DIAGNOSTIC STUDIES LABORATORY: Hematocrit 39.7. Normal WBC count and platelet count. Sodium 124, chloride 97, CO2 17. IMPRESSION A 71-year-old white male with left lower rib fractures, a possible small apical pneumothorax and also a small anterior and lateral splenic contained hematoma. We have explained all to the patient. We will order pain medication for pain control and also have thoracic surgery see the patient for evaluation of a possible pneumothorax and also to evaluate for possible stabilization of his rib fractures for pain control. We will follow his CBC serially and to determine if there is any evidence of bleeding. All have been fully explained to the patient in detail. He understands and requests we proceed. Dictated by... Roberto Velazco M.D. COREY/sukhi TD: 10/24/2016 12:01 JOB #: [id number] CC: Kelechi Anna M.D. CONSULTATION REPORT Page 1 of 1 X Roberto Velazco MD X CONSULTATION REPORT
--- NOTE | ~2016-10-24 | CT2 ---
[facility] A Service of [facility] & [facility] RADIOLOGY TEXT RESULTS PATIENT: MALENA FRIEND LOCATION: [facility] 556- : [birth year] UNIT #: [id number] AGE: [address]: Florian Baker MD SEX: M ORDER DR: [id number] [facility] [address] [facility]. [place], [place] [address] [id number] I MR#: [id number] Acc #: [id number] NAME: MALENA FRIEND : 1945 SEX: M STUDY DATE/TIME: 10/24/2016 4:49 UNIT: CEDOF ROOM: [id number] STUDY DESCRIPTION: CT Abd and Pelv W Cont Attending Physician: Marie Schaefer M.D. Ordering Physician: Charissa Wharton M.D. Primary Care Physician: Primary Care Physician No MEDICAL IMAGING REPORT This report is preliminary unless electronic signature is present EXAM CT abdomen and pelvis with contrast 10/24/2016 HISTORY 71-year-old male in the ED after injury. Fell at home tonight. Left flank pain. Acute left rib fractures. TECHNIQUE CT examination of the abdomen and pelvis was performed with IV contrast. This CT examination was performed with one or more of the following radiation dose reduction techniques: automatic exposure control, adjustment of mA and/or kV according to patient size, and iterative reconstruction. FINDINGS ABDOMEN: Lower chest images show comminuted, minimally displaced acute fractures of the left sixth, seventh and eighth ribs laterally. Old healed fractures of the posterior left eleventh and twelfth ribs are noted. There is no basilar pneumothorax, but there is a tiny left pleural effusion. Advanced pulmonary emphysema. Bilateral pulmonary fibrotic scarring. There is a tiny capsular hematoma along the anterior and lateral margins of the spleen, the no splenic laceration is visible. Liver, pancreas and kidneys show no evidence of acute solid organ injury. Abdominal aorta is normal in caliber with no adjacent fluid collection. Small bowel and colon are normal in caliber, there is no free intraperitoneal air. Bilateral renal cysts. PELVIS: Bladder and rectum are within normal limits. No inguinal hernia. Mild chronic compression fracture at T11 is unchanged since 11/28/2015. Superior endplate compression fracture at T12 does not appear acute but STS. [facility] A Service of [facility] & [facility] RADIOLOGY TEXT RESULTS PATIENT: MALENA FRIEND LOCATION: [facility] 556-01 : [birth year] UNIT #: [id number] AGE: [address]: Florian Baker MD SEX: M ORDER DR: was not present on the 2016 exam. IMPRESSION 1. Comminuted minimally displaced acute rib fractures involving the left sixth, seventh and eighth ribs laterally. Old healed left posterior 11th and 12th rib fractures. 2. Tiny left pleural effusion. Severe pulmonary emphysema. No basilar pneumothorax. 3. Chronic-appearing vertebral compression fractures at T11 and T12. The T12 fracture was not present on the previous chest CT of 11/28/2015. 4. Tiny subcapsular or pericapsular hematoma along the anterior and lateral margins of the spleen. No visible splenic laceration or other parenchymal disruption. No additional solid organ injury within the abdomen. 5. Remainder of the examination is unremarkable. Dictated by... Yariel Gongora M.D. THIS IS AN ELECTRONICALLY VERIFIED REPORT Yariel Gongora M.D. at 10/24/2016 10:18 PM MACK/gualberto TD: 10/24/2016 06:31 JOB #: [id number] MEDICAL IMAGING REPORT Page 1 of 1 COPY
--- NOTE | ~2016-10-24 | A ---
[facility] Nutrition Therapy DATE: 10/24/16 Patient: MALENA Andrade HUGOSUN Physician: CHARMAINE Address: [address] [place] [address] Room/Bed: [address] [place] [address], Zip: [place] [address] Admit Date: 10/24/16 Date of : [birth year] Height: 6 2 Weight: 150 68.03 NUTRITIONAL ASSESSMENT: REASON: 4 NUTRITION RISK PT RE: WEIGHT LOSS + POOR PO INTAKE, ALSO CONSULT RECEIVED PT IS 71 Y.O. MALE ADMITTED FOR COPD, (L) HIP FX S/P FALL AT HOME, HYPONATREMIA PMH: ETOH ABUSE, FREQUENT FALLS, COPD, SMOKER, GERD Anthropometrics: 6'2", WT: 150# (68 KG), BMI: 19.3, 79%IBW Labs: NA+:127, AST: 50 Meds: PROTONIX, THIAMINE, NACL I/O & Bowel function: NOT AVAILABLE Skin Integrity: SCATTERED SKIN TEARS TO BUE/BLE D/T FALLS; SPLENIC HEMATOMA Estimated Nutrition Needs: INCREASED NEEDS 2' PT UNDERWEIGHT, DECREASED PO INTAKE AND APPETITE, WEIGHT LOSS NOTED, PMH Assessment: CHART REVIEWED AND EVENTS NOTED. PT SEEN FOR WEIGHT LOSS + POOR PO INTAKE. PT CONFIRMED DECREASED PO INTAKE 2' DECREASED APPETITE D/T MEDICATIONS (PROZAC) PAST MONTH AND A HALF. PT REPORTS LOSING ~20# PAST 2 MONTHS/12% SEVERE WEIGHT LOSS NOTED. THIS RD ENCOURAGED SLOW GRADUAL PO INTAKE + SUPPLEMENT INTAKE, PT AGREED TO ENSURE CLEAR BID W/MEALS (PT ON CLEAR LIQUID DIET + 1800 ML FLUID RESTRICTION DIET). RD ALSO ENCOURAGED ETOH CESSATION, PT AGREED. PT REPORTED NO DIET QUESTIONS AT THIS TIME, RD TO FOLLOW. Dx: INADEQUATE PROTEIN-ENERGY INTAKE R/T DECREASED APPETITE, MEDICATION USAGE, ?ETOH ABUSE, PMH AEB LOW BMT NOTED, 79%IBW, ~20#/12% WEIGHT LOSS NOTED IN PAST 2 MONTHS. Intervention: 1. CLEAR LIQUID DIET + 1800 ML FLUID RESTRICTION 2. ENSURE CLEAR BID Monitoring, Evaluation and Goals: 1. ORAL INTAKE; ADVANCE DIET AND CONSUME W/NO C/O N/V/D (PO>50%) 2. WEIGHTS; PREVENT FURTHER WEIGHT LOSS 3. SKIN; PROMOTE SKIN HEALING 4. LABS; WNL: NA+ MONITOR: -DIET ADVANCEMENT -PO INTAKE/APPETITE [facility] Nutrition Therapy DATE: 10/24/16 Patient: MALENA SHETHJUSSUN Physician: CHARMAINE Address: [address] [place] [address] Room/Bed: [address] [place] [address], Zip: [place] [address] Admit Date: 10/24/16 Date of : [birth year] Height: 6 2 Weight: 150 68.03 -SUPPLEMENT INTAKE -WEIGHTS Recommendations: 1. PLEASE ORDER MIXED PURI ENSURE CLEAR W/MEALS 2. ONCE MEDICALLY FEASIBLE, ADVANCE DIET TOLERATED TO REGULAR. PLEASE ORDER APPROPRIATE SUPPLEMENTS ONCE DIET ADVANCES BEYOND CLEARS (ENSURE SHAKES, PUDDING, MAGIC CUP) ENCOURAGE ADEQUATE KCAL AND PROTEIN INTAKE 3. CONTINUE DAILY VITAMINS PER CIWA PROTOCOL 4. PLEASE PROVIDE DAILY WEIGHTS FOR MONITORING PURPOSES RD WILL F/U PER PROTOCOL PT IS MODERATE/SEVERELY COMPROMISED Respectfully, YO FERNANDEZ MS, RD, LD Food and Nutritional Services [facility] cc: client file
--- NOTE | ~2016-10-24 | US37 ---
[facility] A Service of [place] & [facility] RADIOLOGY TEXT RESULTS PATIENT: MALENA FRIEND LOCATION: [address] : [birth year] UNIT #: [id number] AGE: [address]: Florian Baker MD SEX: M ORDER DR: [id number] [facility] [address] [facility]. [place], [place] [address] [id number] I MR#: [id number] Acc #: [id number] NAME: MALENA FRIEND : 1945 SEX: M STUDY DATE/TIME: 10/24/2016 13:43 UNIT: C5B ROOM: [facility] STUDY DESCRIPTION: US Carotid W/Doppler Bilateral Attending Physician: Florian Baker M.D. Ordering Physician: Florian Baker M.D. Primary Care Physician: No Primary Care Physician MEDICAL IMAGING REPORT This report is preliminary unless electronic signature is present EXAM Bilateral carotid duplex, 10/24/2016. HISTORY Patient passed out. FINDINGS There is patent flow seen throughout the right common carotid, internal carotid, and external carotid arteries. There is diffuse atherosclerosis noted throughout the right common carotid artery, continuing to the right carotid bifurcation. At the right carotid bifurcation, the atherosclerosis appears heterogeneous, irregular, and echogenic. This plaque continues into the internal and external carotid arteries. The right common carotid artery peak velocity is 64 cm/sec. The right internal carotid artery peak systolic/end diastolic velocities are: proximal 83/30 cm/sec, mid 252/63 cm/sec, distal 122/39 cm/sec. The right external carotid artery peak velocity is 55 cm/sec, and vertebral artery 82 cm/sec. The right ICA:CCA ratio is 3.9. There is patent flow seen throughout the left common carotid, internal carotid, and external carotid arteries. There is diffuse atherosclerosis noted at the left common carotid artery, with irregular, heterogeneous plaque noted in the proximal portion, mid portion, and carotid bifurcation. It extends into the external and internal carotid arteries. The left internal carotid artery has a peak systolic velocity/end diastolic velocity of: proximal 153/37 cm/sec, mid 187/44 cm/sec, and distal 116/30 cm/sec. The left external carotid artery peak velocity is 87 cm/sec, and vertebral artery 62 cm/sec. The left ICA:CCA ratio is 2.5 IMPRESSION 1. There is high-grade stenosis of the right carotid artery, consistent with greater than 70% stenosis by duplex criteria. [facility] A Service of [facility] RADIOLOGY TEXT RESULTS PATIENT: MALENA FRIEND LOCATION: [address] [id number] [birth year] UNIT #: [id number] AGE: [address]: Florian Baker MD SEX: M ORDER DR: 2. The left carotid artery has moderate atherosclerosis, consistent with 50% to 69% stenosis by duplex criteria. 3. Vertebral flow is antegrade bilaterally. Dictated by... Denny Winters M.D. THIS IS AN ELECTRONICALLY VERIFIED REPORT Denny Winters M.D. at 11/01/2016 7:49 AM Tommy TD: 10/24/2016 18:43 JOB #: [id number] MEDICAL IMAGING REPORT Page 1 of 1 COPY
--- NOTE | ~2016-10-24 | HP ---
Unit #: [id number] #: [id number] Patient: MALENA FRIEND [id number] [address] [place], [place] [address] [id number] I MR#: [id number] NAME: MALENA FRIEND ROOM: 85818 Age: 71 Sex: M Admission Date: 10/24/2016 : 1945 Attending Physician: Marie Schaefer M.D. Primary Care Physician: No Primary Care Physician HISTORY AND PHYSICAL CHIEF COMPLAINT Fall with multiple left rib fractures, tiny subcapsular splenic hematoma, hyponatremia. HISTORY OF PRESENT ILLNESS This 71-year-old male with history of COPD, alcohol abuse is admitted after a fall. The patient states that about 2 o'clock this morning he developed vertigo and "blacked out". He was brought to this emergency department at 2:20 a.m. where x-rays demonstrate multiple left rib fractures. He has a suspected tiny left apical pneumothorax. Also noted is a tiny subcapsular splenic hematoma. The patient denies abdominal pain at present. He is tender over his left ribs. Labs show a sodium of 124. In the ER, he was bolused with IV fluids, given 4 mg of IV morphine. The patient has been admitted previously to this facility for hyponatremia. PAST MEDICAL HISTORY 1. COPD with continued tobacco abuse. 2. Depression. 3. GERD. 4. Neck surgery. 5. Back surgery. 6. Foot surgery. SOCIAL HISTORY The patient lives alone. He smokes one-half pack per day of tobacco. He drinks a six-pack of beer on a daily basis but denies history of alcohol withdrawal symptoms. FAMILY HISTORY Liver disease. ALLERGIES Aspirin and Toradol. HOME MEDICATIONS Omeprazole. REVIEW OF SYSTEMS Notable for left rib pain, fall, COPD, GERD, above-mentioned surgeries, tobacco and alcohol abuse. All other systems are reviewed and are otherwise negative. Unit #: [id number] #: [id number] Patient: MALENA FRIEND PHYSICAL EXAMINATION GENERAL APPEARANCE: A 71-year-old, thin male looks to be uncomfortable. VITAL SIGNS: Temperature 98. Pulse 87. Respirations 19. Blood pressure 161/95. O2 saturation 97% on room air. HEENT: Eyes: PERRLA. Extraocular muscles are intact. Pharynx is benign. NECK: Supple without adenopathy or thyromegaly. CHEST: Clear. CARDIAC: Normal S1, S2 without definite murmur. The patient is tender over the lateral mid chest wall. ABDOMEN: Bowel sounds are present. No hepatosplenomegaly, tenderness or masses. EXTREMITIES: Without clubbing, cyanosis or edema. There is bruising noted over the hands. NEUROLOGIC: The patient is awake, alert, oriented. Cranial nerves are intact. He is able to move all of his extremities. DIAGNOSTIC STUDIES LABORATORY: Admission labs: Hematocrit 39.7, normal white count, platelet count, MCV 99.1. SMA-12: Sodium 124, chloride 97, CO2 17. CK 465. Alcohol level 69. Urine tox screen positive for TCA. Urinalysis: 1+ protein. IMAGING: CT scan of the spine shows extensive postop changes but no fracture. Head CT: No acute disease, unchanged. Chest x-ray shows lateral left rib fractures and a suspected tiny left apical pneumothorax. CT scan of the abdomen and pelvis shows left 6th, 7th and 8th rib fractures with a tiny left pleural effusion. COPD. Chronic vertebral fractures. Tiny subcapsular splenic hematoma. ASSESSMENT 1. Fall with multiple left rib fractures, suspected tiny left pneumothorax and a tiny subcapsular splenic hematoma. 2. Alcohol abuse. The patient states that he drinks about a six-pack per day of alcohol. 3. Hyponatremia secondary to beer potomania. 4. Tobacco use. 5. COPD. 6. GERD. PLAN 1. Place oxygen and repeat chest x-ray at 9 a.m. If pneumothorax is increasing, we will consult Thoracic Surgery. 2. General Surgery to consult, repeat labs at noon. 3. IV fluids and supportive treatment. 4. SCDs for DVT prophylaxis. 5. Vitamins and PRN benzodiazepines. Dictated by Marie Schaefer M.D. AML/bd TD: 10/24/2016 06:27 JOB #: [id number] CC: Esau Unit #: [id number] #: [id number] Patient: MALENA FRIEND HISTORY AND PHYSICAL Page 1 of 1 X Marie Schaefer MD X HISTORY AND PHYSICAL
--- NOTE | ~2016-10-24 | FU ---
[facility] Nutrition Therapy DATE: 10/29/16 Patient: MALENA Andrade HUGOSUN Physician: CHARMAINE Address: [address] [place] [address] Room/Bed: [address] [place] [address], Zip: [place] [address] Admit Date: 10/24/16 Date of : [birth year] Height: 6 2 Weight: 126 57.6 NUTRITION MONITORING/FOLLOW-UP: Reason: PT SEEN FOR FOLLOW-UP DX: FELL AT HOME-(L) RIB FX, COPD, HYPONATREMIA Anthropometrics: 6'2", WT: 126# (PER PT) (57 KG), BMI: Labs: GLU: 139, BUN: 31, ALB: 3.3 Meds: SOLU-MEDROL, KCL, LIPITOR, LACTULOSE, PEPCID, LAXATIVE, ZOFRAN, THIAMINE I&O's: 486/1008, 6 BMs NOTED? Skin: ISSUES PREVIOUSLY NOTED IN RD ASSESSMENT 10/24/16 Estimated Nutrition Needs: INCREASED NUTRIENT NEEDS 2' PT UNDERWEIGHT, CURRENT CONDITION, WEIGHT LOSS NOTED IN PAST ASSESSMENT Assessment: CHART REVIEWED AND EVENTS NOTED. PT SEEN FOR FOLLOW-UP. PT REPORTS APPETITE SLOWLY IMPROVING, NOTING NO C/O N/V/D. PT HAD BREAKFAST TRAY AT BEDSIDE-NOTED PT CONSUMED ~75% OF MEAL. PT REPORTS NOT EATING LUNCH D/T PROCEDURE SCHEDULED. PT REPORTS TOLERATING PO INTAKE. THIS RD ENCOURAGED ADEQUATE KCAL AND PROTEIN INTAKE FOR GRADUAL WEIGHT GAIN, PT AGREED TO ENSURE SHAKES TID W/MEALS. OF NOTE, PT RECEIVING HH DIET + 2000 ML FLUID RESTRICTION. PT REPORTED NO DIET QUESTIONS AT THIS TIME. RD TO CONTINUE TO FOLLOW. Dx: INADEQUATE PROTEIN-ENERGY INTAKE R/T DECREASED APPETITE, MEDICATION USAGE, ?ETOH ABUSE, PMH AEB LOW BMI NOTED, 20#/12% SEVERE WEIGHT LOSS NOTED IN PAST 2 MONTHS.-ACTIVE Intervention: 1. HH DIET + 2000 ML FLUID RESTRICTION 2. ENSURE SHAKES TID W/MEALS Monitoring, Evaluation and Goals: 1. ORAL INTAKE; CONSUME >50% OF MEALS AND SUPPLEMENTS W/NO C/O N/V/D-ACTIVE 2. WEIGHTS; PROMOTE GRADUAL WEIGHT GAIN-ACTIVE 3. LABS; WNL-ACTIVE 4. SKIN; PROMOTE SKIN HEALING-ACTIVE MONITOR: -PO INTAKE/APPETITE -WEIGHTS -SUPPLEMENT INTAKE Recommendations: [facility] Nutrition Therapy DATE: 10/29/16 Patient: MALENA Andrade HUGOSUN Physician: CHARMAINE Address: [address] [place] [address] Room/Bed: [address] [place] [address], Zip: [place] [address] Admit Date: 10/24/16 Date of : [birth year] Height: 6 2 Weight: 126 57.6 1. PLEASE ORDER MEGHANN ENSURE SHAKES TID W/MEALS 2. APPRECIATE FAMILY AND STAFF TO ENCOURAGE ADEQUATE KCAL AND PROTEIN INTAKE -PLEASE CHANGE CURRENT DIET ORDER TO REGULAR IF PO INTAKE >50% 3. ADD MVI W/MINERAL DAILY 2' CURRENT CONDITION, PT UNDERWEIGHT, HX OF ETOH ABUSE RD WILL F/U PER PROTOCOL PT IS MODERATELY COMPROMISED Respectfully, YO FERNANDEZ MS, RD, LD Food and Nutritional Services [facility] cc: client file
--- NOTE | ~2016-10-24 | CO ---
Unit #: [id number] #: [id number] Patient: RANJIT CARRASCO [id number] [address] [place], [place] [address] [id number] I MR#: [id number] NAME: RANJIT CARRASCO ROOM: 55 Age: 71 Sex: M Admission Date: 10/24/2016 : 1945 Attending Physician: Florian Baker M.D. Primary Care Physician: No Primary Care Physician CONSULTATION REPORT ADDENDUM Mr. Ranjit Carrasco was seen and evaluated on 10/24/2016. I agree with the evaluation and plan as documented by my nurse practitioner, Katlyn Murillo, in her consultation on this patient. He is a 71-year-old quiet male who has a history of alcohol abuse and was admitted at this time after having an episode of vertigo and experiencing a fall. A CT scan that was obtained on the patient demonstrated new left rib fractures involving ribs six, seven and eight. There was noted to be old healed rib fractures involving the left 11th and 12th ribs. The patient was also noted to have a small left pneumothorax. Because of the small size of the left pneumothorax, it was elected to follow it conservatively rather than place a chest tube. The left pneumothorax will, therefore, be followed with serial chest x-rays to make sure that it does not enlarge. Otherwise, we agree with pain management and respiratory treatments as you are giving in this patient. We will plan to follow along with you. Dictated by... Dean Chavez M.D. MICHELLE/sukhi TD: 10/30/2016 08:11 JOB #: [id number] CONSULTATION REPORT Page 1 of 1 X Dean Chavez MD X CONSULTATION REPORT
--- NOTE | ~2016-10-24 | CR141 ---
[facility] A Service of [facility] & [facility] RADIOLOGY TEXT RESULTS PATIENT: MALENA FRIEND LOCATION: [place] [address] : [birth year] UNIT #: [id number] AGE: [address]: Florian Baker MD SEX: M ORDER DR: [id number] [facility] [address] [place], [place] [address] [id number] I MR#: [id number] Acc #: [id number] NAME: MALENA FRIEND : 1945 SEX: M STUDY DATE/TIME: 10/24/2016 14:56 UNIT: [facility] ROOM: [facility] STUDY DESCRIPTION: CR Hand Min 3 Views Lt Attending Physician: Florian Baker M.D. Ordering Physician: Florian Baker M.D. Primary Care Physician: Primary Care Physician No MEDICAL IMAGING REPORT This report is preliminary unless electronic signature is present EXAM Left hand 3 views INDICATIONS Left hand pain and left wrist pain today after falling. COMPARISON 02/14/2014 FINDINGS Osteopenia. There is no definite acute fracture. There are mild IP joint degenerative changes. Chondrocalcinosis involving the TFCC. IMPRESSION No evidence of acute fracture Dictated by... Cuong Zamora M.D. THIS IS AN ELECTRONICALLY VERIFIED REPORT Cunog Zamora M.D. at 10/25/2016 9:33 AM ARS/to TD: 10/24/2016 17:23 JOB #: [id number] MEDICAL IMAGING REPORT Page 1 of 1 COPY
--- NOTE | ~2016-10-24 | US38 ---
[facility] A Service of [facility] RADIOLOGY TEXT RESULTS PATIENT: MALENA FRIEND LOCATION: [address] : [birth year] UNIT #: [id number] AGE: [address]: Florian Baker MD SEX: M ORDER DR: [id number] [place] [address] [facility]. [place], [place] [address] [id number] I MR#: [id number] Acc #: [id number] NAME: MALENA FRIEND : 1945 SEX: M STUDY DATE/TIME: 10/31/2016 12:22 UNIT: [facility] ROOM: [facility] STUDY DESCRIPTION: Carotid W/Doppler Unilatera Attending Physician: Florian Baker M.D. Ordering Physician: Markos Liang M.D. Primary Care Physician: No Primary Care Physician MEDICAL IMAGING REPORT This report is preliminary unless electronic signature is present DATE OF EXAMINATION 10/31/2016 EXAM Right carotid duplex. CLINICAL HISTORY Status post right carotid endarterectomy, intraoperative evaluation. FINDINGS There is patent flow seen throughout the right common carotid, internal carotid, and external carotid arteries. There is no significant atherosclerotic noted, intraluminal flap, intraluminal thrombus, or stenosis seen. The right common carotid artery peak velocity is 52 cm/sec. The right internal carotid artery peak systolic velocity is 16 cm/sec, mid 33 cm/sec, distal 56 cm/sec. The right external carotid artery peak velocity is 200 cm/sec. the right vertebral artery is not evaluated. The right ICA/CCA ratio is 1.08. IMPRESSION The right carotid artery appears widely patent, status post endarterectomy. There is no evidence of intraluminal thrombus, intimal flap, or stenosis seen. Dictated by... Denny Winters M.D. THIS IS AN ELECTRONICALLY VERIFIED REPORT Denny Winters M.D. at 11/01/2016 7:42 AM [facility] A Service of [facility] RADIOLOGY TEXT RESULTS PATIENT: MALENA FRIEND LOCATION: CICCU2 CICCU2-12 : [birth year] UNIT #: [id number] AGE: [address]: Florian Baker MD SEX: M ORDER DR: Molly TD: 10/31/2016 16:33 JOB #: [id number] MEDICAL IMAGING REPORT Page 1 of 1 COPY
--- NOTE | ~2016-10-24 | CO ---
Unit #: [id number] #: [id number] Patient: RANJIT CARRASCO [id number] [address] [place], [place] [address] [id number] I MR#: [id number] NAME: RANJIT CARRASCO ROOM: [facility] Age: 71 Sex: M Admission Date: 10/24/2016 : 1945 Attending Physician: Florian Baker M.D. Primary Care Physician: Fidelina Primary Care Physician Requesting Physician: Florian Baker M.D. Consultation Date: 10/24/2016 CONSULTATION REPORT REASON FOR ADMISSION 1. Mildly displaced left rib fractures. 2. Small left apical pneumothorax. HISTORY OF PRESENT ILLNESS Mr. Ranjit Carrasco is a 71-year-old male with self-professed xao-gwue-ito-day beer drinking, with ETOH abuse. He presented to [facility] this a.m. with complaint of overt syncope. The patient states he has vertigo. He states he was standing in the kitchen and without any warning "blacked out." This has happened before several times, with the last time being last week. Chest x-ray on admit showed tiny left pneumothorax with fractures of the sixth and seventh ribs, with slight displacement, as well as old fractures noted. CT of the abdomen showed subscapular splenic hematoma and Dr. Velazco has evaluated and is following with serial hemoglobin and hematocrit studies. Dr. Iglesias is following the patient in regard to chronic obstructive pulmonary disease. PAST MEDICAL HISTORY 1. Chronic obstructive pulmonary disease. The patient is not on any home O2. 2. ETOH abuse. Drinks one six-pack per day. 3. Vertigo. 4. Depression. 5. Gastroesophageal reflux disease. 6. Degenerative disk disease. 7. Chronic pain syndrome. 8. The patient denies coronary artery disease, stroke, diabetes mellitus. As well, he denies any DVT of PE. He does have some osteoarthritis. PAST SURGICAL HISTORY 1. Multiple cervical spine surgeries. 2. Back lumbar spine surgeries. 3. Foot surgery. SOCIAL HISTORY He lives alone. Two packs per day times 50 year smoker. Currently smokes one-half pack per day for six months. He drinks a six-pack of beer each day. His family physician is Mariela GAYTAN APRN. ALLERGIES Toradol and aspirin. Unit #: [id number] #: [id number] Patient: RANJIT CARRASCO CURRENT MEDICATIONS 1. Omeprazole 20 mg daily. 2. Tylenol 650 mg q.6 h. 3. Prozac 10 mg daily. 4. Symbicort 80/4.5 two puffs b.i.d. 5. Jensen palmetto 320 mg daily. REVIEW OF SYSTEMS Chronic back pain, dyspnea on exertion, vertigo, unsteady gait. PHYSICAL EXAMINATION GENERAL: Awake and alert 71-year-old male. Good historian regarding his own medical history. Good eye-to-eye contact. VITALS: Temperature 98.7, heart rate 76, respiratory rate 18 even and unlabored, blood pressure 173/86, O2 at 2 liters nasal cannula. NECK: Supple. Trachea midline. No jugular venous distension. LUNGS: Bilaterally with expiratory wheezes. No rales or rhonchi. CHEST: Painful in the left axilla to the left 11th rib. No subcutaneous emphysema noted. Mild displacement of the rib is palpated. HEART: S1 and S2, without rub. Without murmur. No S3 or S4. No peripheral edema. ABDOMEN: Large, round, soft. Bowel sounds positive. Nontender. No hepatosplenomegaly noted. MUSCULOSKELETAL: There is a left hand deformity with bruising, otherwise within normal limits. NEUROLOGIC: No focal neurologic deficits noted. He has an unsteady gait. DIAGNOSTIC STUDIES IMAGING: The patient has had a CT of the head, cervical spine, abdomen and pelvis, as well as chest x-ray. Those results have been reviewed. LABORATORY: BUN 8, creatinine 0.7, sodium [address] Gould has been consulted. Potassium 4.7. Hemoglobin 12.7, hematocrit 39.7, white blood cell count 8.4 and platelets 193. ASSESSMENT 1. Multiple old and new rib fractures on the left with mild displacement noted with no surgical intervention warranted at present. 2. Left pneumothorax, resolving. 3. Chronic obstructive pulmonary disease. 4. Vertigo. 5. Splenic hematoma, subscapular. PLAN 1. We will follow the patient. Chest x-ray at 3 p.m. today portable, chest x-ray at 4 a.m. tomorrow morning, portable. Antivert 25 mg tablets, 0.5 tablet p.o. b.i.d. for his vertigo. 2. Physical therapy and occupational therapy evaluation and treat. Do not raise arms above shoulders. 3. Chest binder while out of bed. 4. Bilateral carotid duplex to evaluate for vertebral insufficiency. 5. Magnesium level to be added onto current labs. Thank you very much for allowing us to participate in the care of your patient. If you have any questions, please do not hesitate to call. Dictated by... Katlyn Murillo A.P.R.N. for Dean Chavez M.D. Unit #: [id number] #: [id number] Patient: RANJIT CARRASCO TB/gz TD: 10/24/2016 16:07 JOB #: [id number] CC: MdJulyu CONSULTATION REPORT Page 1 of 1 X Katlyn Murillo EMBEDDED SOFTWARE PROGRAMMER X CONSULTATION REPORT
[2016-10-24 03:08] LABS: BASOPHIL% 0.5 % (0-2.5); EOSINOPHIL% 0.3 % (0.0-7.0); HEMATOCRIT 39.7 % (38.0-50.0); HEMOGLOBIN 12.9 gm/dL (13.0-16.0); LYMPHOCYTE# 1.3 X10e3 (1.0-3.5); MEAN CELL VOLUME 99.1 FL (83-96); MEAN CORPUSCULAR HEMOGLOBIN 32.3 PG (28-34); MEAN CORPUSCULAR HGB CONC 32.6 g/dL (30-36); MEAN PLATELET VOLUME 7.2 FL (6.5-11.5); MONOCYTE# 0.4 X10e3 (0-1.0); MONOCYTE% 4.3 % (3.0-12.0); NEUTROPHIL# 6.6 X10e3 (1.5-7.1); NEUTROPHIL% 78.9 % (40-75); PLATELET COUNT 193 X10e3 (140-420); RED CELL DISTRIBUTION WIDTH 14.4 % (11.0-15.5); WHITE BLOOD COUNT 8.4 X10e3 (4.0-10.5)
[2016-10-24 03:09] LABS: DIFF IND NO
[~2016-10-24 03:30] MED LIST changes: -ACETAMINOPHEN650 M3 PO; -ALBUTEROL MININEB NEB; -APAP325 MG PO; -ASPIRIN81 MG PO; -BENZONATATE PO; -COMBIVENT U/D3 M1 INH; -FAMOTIDINE PO; -HYDROCODON-ACE1 EAC7 PO; -LIPITOR20 MG PO; -METOPROLOL TAR25 MG PO; -MULTIVITAMINS1 EAC3 PO; -NICOTINE TRANSD14 MG TOP; -NORVASC PO; -OMEPRAZOLE20 M2 PO; -PREDNISOLONE SO10 MG PO; -PREDNISONE10 MG PO; -PRILOSEC PO; -PROZAC10 M1 PO; -RESTORIL7.5 MG PO; -SAW PALMETTO160 MG PO; -SYMBICORT INH; -SYMBICORT80 INH; -TESSALON PERLE100 M1 PO; -TYLENOL325 M1 PO
[2016-10-24 03:43] LABS: ALBUMIN SERUM 3.7 g/dL (3.5-5.0); BILIRUBIN, DIRECT 0.2 mg/dL (0.0-0.2); BILIRUBIN,INDIRECT 0.7 mg/dL (0.0-0.9); BILIRUBIN,TOTAL 0.9 mg/dL (0.2-2.0); BUN/CREATININE RATIO 11.42; CALCIUM SERUM 8.8 mg/dL (8.4-10.2); CREATININE SERUM 0.7 mg/dL (0.6-1.4); POTASSIUM 4.7 mmol/L (3.5-5.1); PROTEIN TOTAL SERUM 7.5 g/dL (6.0-8.3)
[2016-10-24 03:50] LABS: URINE SOURCE CLEAN CATCH
[2016-10-24 04:05] LABS: URINE APPEARANCE TURBID; URINE BILIRUBIN NEG (NEG); URINE BLOOD NEG (NEG); URINE COLOR YELLOW; URINE GLUCOSE NEG (NEG); URINE KETONE NEG (NEG); URINE LEUKOCYTE ESTERASE NEG (NEG); URINE NITRATE NEG (NEG); URINE PROTEIN 1+ (NEG); URINE SPECIFIC GRAVITY 1.027 (1.003-1.035)
[2016-10-24 04:06] LABS: URBCS1 AUWI 0-2 /[HPF] (0-2); URINE BACTERIA AUWI NEG (NEGATIVE); URINE SQUAMOUS EPITHELIAL CELL NONE SEEN /[HPF]; UWBCS1 AUWI 0-2 (0-5)
[2016-10-24 04:08] LABS: CULTURE INDICATED? NO
[2016-10-24 04:22] LABS: AMPHETAMINE NEG (NEG); BARBITURATES NEG (NEG); BENZODIAZEPINES NEG (NEG); COCAINE NEG (NEG); MARIJUANA NEG (NEG); OPIATES NEG (NEG); TRICYCLIC ANTIDEPRESSANTS POS (NEG); U METHADONE NEG (NEG)
[2016-10-24] MEDS ORDERED: OMEPRAZOLE20 M2 PO (08:29)
[2016-10-24] MEDS ORDERED: TYLENOL325 M1 PO (08:30)
[2016-10-24] MEDS ORDERED: PROZAC10 M1 PO (08:31)
[2016-10-24] MEDS ORDERED: SYMBICORT80 INH (08:33)
[2016-10-24] MEDS ORDERED: SAW PALMETTO160 MG PO (08:37)
[2016-10-24 12:47] LABS: BASOPHIL% 0.5 % (0-2.5); EOSINOPHIL% 0.3 % (0.0-7.0); HEMATOCRIT 40.3 % (38.0-50.0); HEMOGLOBIN 13.3 gm/dL (13.0-16.0); LYMPHOCYTE# 1.2 X10e3 (1.0-3.5); MEAN CELL VOLUME 98.3 FL (83-96); MEAN CORPUSCULAR HEMOGLOBIN 32.5 PG (28-34); MEAN CORPUSCULAR HGB CONC 33.1 g/dL (30-36); MEAN PLATELET VOLUME 7.5 FL (6.5-11.5); MONOCYTE# 0.6 X10e3 (0-1.0); MONOCYTE% 7.9 % (3.0-12.0); NEUTROPHIL# 5.9 X10e3 (1.5-7.1); NEUTROPHIL% 76.3 % (40-75); PLATELET COUNT 188 X10e3 (140-420); RED CELL DISTRIBUTION WIDTH 14.6 % (11.0-15.5); WHITE BLOOD COUNT 7.8 X10e3 (4.0-10.5)
[2016-10-24 12:54] LABS: DIFF IND NO
[2016-10-24 13:00] LABS: PARTIAL THROMBOPLASTIN TIME 28.1 SECONDS (23.5-31.3); PROTHROMBIN TIME (PATIENT) 10.2 SECONDS (9.6-11.5)
[2016-10-24 13:07] LABS: MAGNESIUM 1.8 mg/dL (1.6-3.0); PHOSPHOROUS 2.8 mg/dL (2.5-4.6)
[2016-10-24 13:18] LABS: BUN/CREATININE RATIO 14.28; CALCIUM SERUM 8.7 mg/dL (8.4-10.2); CREATININE SERUM 0.7 mg/dL (0.6-1.4); POTASSIUM 4.4 mmol/L (3.5-5.1)
[2016-10-24 15:14] LABS: POTASSIUM,URINE RANDOM 24 mmol/L; SODIUM URINE RANDOM 77 mmol/L
[2016-10-24 15:50] LABS: OSMOLALITY,URINE 340 mOsmo/kg (250-900)
[2016-10-25 07:33] LABS: BASOPHIL% 0.4 % (0-2.5); EOSINOPHIL% 0.5 % (0.0-7.0); HEMATOCRIT 38.3 % (38.0-50.0); HEMOGLOBIN 12.5 gm/dL (13.0-16.0); LYMPHOCYTE# 1.2 X10e3 (1.0-3.5); LYMPHOCYTE% 14.3 % (17.0-45.0); MEAN CELL VOLUME 99.7 FL (83-96); MEAN CORPUSCULAR HEMOGLOBIN 32.5 PG (28-34); MEAN CORPUSCULAR HGB CONC 32.6 g/dL (30-36); MEAN PLATELET VOLUME 7.6 FL (6.5-11.5); MONOCYTE# 0.6 X10e3 (0-1.0); MONOCYTE% 7.6 % (3.0-12.0); NEUTROPHIL# 6.3 X10e3 (1.5-7.1); NEUTROPHIL% 77.2 % (40-75); PLATELET COUNT 162 X10e3 (140-420); RED BLOOD COUNT 3.84 X10e (3.90-5.60); RED CELL DISTRIBUTION WIDTH 14.6 % (11.0-15.5); WHITE BLOOD COUNT 8.1 X10e3 (4.0-10.5)
[2016-10-25 07:39] LABS: DIFF IND NO
[2016-10-25 08:05] LABS: BUN/CREATININE RATIO 18.33; CALCIUM SERUM 8.3 mg/dL (8.4-10.2); CREATININE SERUM 0.6 mg/dL (0.6-1.4); GLOM FILT RATE Estimated 101.2 mL/min (>60); PHOSPHOROUS 2.5 mg/dL (2.5-4.6); URIC ACID 5.2 mg/dL (2.6-7.2)
[2016-10-26 06:52] LABS: HEMATOCRIT 37.4 % (38.0-50.0); HEMOGLOBIN 12.1 gm/dL (13.0-16.0); MEAN CELL VOLUME 99.7 FL (83-96); MEAN CORPUSCULAR HEMOGLOBIN 32.2 PG (28-34); MEAN CORPUSCULAR HGB CONC 32.3 g/dL (30-36); MEAN PLATELET VOLUME 7.7 FL (6.5-11.5); RED BLOOD COUNT 3.75 X10e (3.90-5.60); RED CELL DISTRIBUTION WIDTH 14.9 % (11.0-15.5); WHITE BLOOD COUNT 9.1 X10e3 (4.0-10.5)
[2016-10-26 07:28] LABS: CALCIUM SERUM 8.7 mg/dL (8.4-10.2); CREATININE SERUM 0.5 mg/dL (0.6-1.4); GLOM FILT RATE Estimated 109.1 mL/min (>60)
[2016-10-27 06:54] LABS: HEMOGLOBIN 12.6 gm/dL (13.0-16.0); MEAN CELL VOLUME 99.3 FL (83-96); MEAN CORPUSCULAR HGB CONC 33.2 g/dL (30-36); MEAN PLATELET VOLUME 8.4 FL (6.5-11.5); RED BLOOD COUNT 3.83 X10e (3.90-5.60); RED CELL DISTRIBUTION WIDTH 14.7 % (11.0-15.5); WHITE BLOOD COUNT 7.6 X10e3 (4.0-10.5)
[2016-10-27 07:33] LABS: ALBUMIN SERUM 3.3 g/dL (3.5-5.0); BILIRUBIN,TOTAL 0.6 mg/dL (0.2-2.0); BUN/CREATININE RATIO 21.42; CALCIUM SERUM 8.9 mg/dL (8.4-10.2); CREATININE SERUM 0.7 mg/dL (0.6-1.4); MAGNESIUM 1.6 mg/dL (1.6-3.0); POTASSIUM 4.4 mmol/L (3.5-5.1); PROTEIN TOTAL SERUM 7.1 g/dL (6.0-8.3)
[2016-10-28 07:06] LABS: HEMATOCRIT 36.4 % (38.0-50.0); MEAN CELL VOLUME 99.2 FL (83-96); MEAN CORPUSCULAR HEMOGLOBIN 32.8 PG (28-34); MEAN PLATELET VOLUME 7.9 FL (6.5-11.5); RED BLOOD COUNT 3.67 X10e (3.90-5.60); RED CELL DISTRIBUTION WIDTH 14.8 % (11.0-15.5)
[2016-10-28 07:09] LABS: WHITE BLOOD COUNT 17.3 X10e3 (4.0-10.5)
[2016-10-28 07:33] LABS: CALCIUM SERUM 8.9 mg/dL (8.4-10.2); CREATININE SERUM 0.7 mg/dL (0.6-1.4); MAGNESIUM 1.8 mg/dL (1.6-3.0); PHOSPHOROUS 2.7 mg/dL (2.5-4.6); POTASSIUM 4.2 mmol/L (3.5-5.1)
[2016-10-29 06:23] LABS: HEMATOCRIT 37.2 % (38.0-50.0); HEMOGLOBIN 11.9 gm/dL (13.0-16.0); MEAN PLATELET VOLUME 7.9 FL (6.5-11.5); RED BLOOD COUNT 3.72 X10e (3.90-5.60); RED CELL DISTRIBUTION WIDTH 14.8 % (11.0-15.5); WHITE BLOOD COUNT 17.1 X10e3 (4.0-10.5)
[2016-10-29 06:57] LABS: BUN/CREATININE RATIO 51.66; CALCIUM SERUM 8.9 mg/dL (8.4-10.2); CREATININE SERUM 0.6 mg/dL (0.6-1.4); GLOM FILT RATE Estimated 101.2 mL/min (>60); POTASSIUM 3.9 mmol/L (3.5-5.1)
[2016-10-30 05:34] LABS: HEMATOCRIT 37.2 % (38.0-50.0); HEMOGLOBIN 12.2 gm/dL (13.0-16.0); MEAN CELL VOLUME 98.8 FL (83-96); MEAN CORPUSCULAR HEMOGLOBIN 32.4 PG (28-34); MEAN CORPUSCULAR HGB CONC 32.8 g/dL (30-36); MEAN PLATELET VOLUME 7.9 FL (6.5-11.5); RED BLOOD COUNT 3.76 X10e (3.90-5.60); RED CELL DISTRIBUTION WIDTH 14.9 % (11.0-15.5); WHITE BLOOD COUNT 14.3 X10e3 (4.0-10.5)
[2016-10-30 06:03] LABS: BUN/CREATININE RATIO 47.14; CALCIUM SERUM 8.7 mg/dL (8.4-10.2); CREATININE SERUM 0.7 mg/dL (0.6-1.4); POTASSIUM 4.1 mmol/L (3.5-5.1)
[2016-10-31 06:08] LABS: HEMATOCRIT 39.7 % (38.0-50.0); HEMOGLOBIN 12.8 gm/dL (13.0-16.0); MEAN CELL VOLUME 99.4 FL (83-96); MEAN CORPUSCULAR HGB CONC 32.2 g/dL (30-36); MEAN PLATELET VOLUME 7.9 FL (6.5-11.5); RED BLOOD COUNT 3.99 X10e (3.90-5.60); RED CELL DISTRIBUTION WIDTH 15.3 % (11.0-15.5); WHITE BLOOD COUNT 13.5 X10e3 (4.0-10.5)
[2016-10-31 06:20] LABS: PROTHROMBIN TIME (PATIENT) 10.7 SECONDS (9.6-11.5)
[2016-10-31 07:04] LABS: BUN/CREATININE RATIO 48.33; CALCIUM SERUM 8.9 mg/dL (8.4-10.2); CREATININE SERUM 0.6 mg/dL (0.6-1.4); GLOM FILT RATE Estimated 101.2 mL/min (>60); POTASSIUM 4.4 mmol/L (3.5-5.1)
[2016-11-01 13:42] LABS: CALCIUM SERUM 8.3 mg/dL (8.4-10.2); CREATININE SERUM 0.7 mg/dL (0.6-1.4); MAGNESIUM 2.1 mg/dL (1.6-3.0); POTASSIUM 4.1 mmol/L (3.5-5.1)
[2016-11-02 06:23] LABS: BASOPHIL% 0.1 % (0-2.5); DIFF IND NO; EOSINOPHIL# 0.1 X10e3 (0-0.7); EOSINOPHIL% 0.8 % (0.0-7.0); HEMATOCRIT 37.4 % (38.0-50.0); HEMOGLOBIN 11.9 gm/dL (13.0-16.0); LYMPHOCYTE# 2.1 X10e3 (1.0-3.5); LYMPHOCYTE% 15.8 % (17.0-45.0); MEAN CELL VOLUME 100.2 FL (83-96); MEAN CORPUSCULAR HGB CONC 31.9 g/dL (30-36); MEAN PLATELET VOLUME 8.3 FL (6.5-11.5); MONOCYTE# 1.5 X10e3 (0-1.0); MONOCYTE% 11.5 % (3.0-12.0); NEUTROPHIL# 9.4 X10e3 (1.5-7.1); NEUTROPHIL% 71.8 % (40-75); PLATELET COUNT 221 X10e3 (140-420); RED BLOOD COUNT 3.73 X10e (3.90-5.60); RED CELL DISTRIBUTION WIDTH 15.1 % (11.0-15.5); WHITE BLOOD COUNT 13.1 X10e3 (4.0-10.5)
[2016-11-02 07:27] LABS: BUN/CREATININE RATIO 38.33; CALCIUM SERUM 8.5 mg/dL (8.4-10.2); CREATININE SERUM 0.6 mg/dL (0.6-1.4); GLOM FILT RATE Estimated 101.2 mL/min (>60); POTASSIUM 4.2 mmol/L (3.5-5.1)
[2016-11-03 06:03] LABS: HEMATOCRIT 36.5 % (38.0-50.0); HEMOGLOBIN 12.1 gm/dL (13.0-16.0); MEAN CELL VOLUME 99.7 FL (83-96); MEAN CORPUSCULAR HEMOGLOBIN 33.1 PG (28-34); MEAN CORPUSCULAR HGB CONC 33.2 g/dL (30-36); MEAN PLATELET VOLUME 8.3 FL (6.5-11.5); RED BLOOD COUNT 3.66 X10e (3.90-5.60); RED CELL DISTRIBUTION WIDTH 15.3 % (11.0-15.5); WHITE BLOOD COUNT 13.2 X10e3 (4.0-10.5)
[2016-11-03 06:50] LABS: BUN/CREATININE RATIO 43.33; CALCIUM SERUM 8.3 mg/dL (8.4-10.2); CREATININE SERUM 0.6 mg/dL (0.6-1.4); GLOM FILT RATE Estimated 101.2 mL/min (>60); POTASSIUM 4.8 mmol/L (3.5-5.1)
[2016-11-04] MEDS ORDERED: ALBUTEROL MININEB NEB (14:10)
[2016-11-04] MEDS ORDERED: PREDNISONE10 MG PO (14:15)
[2016-11-04] MEDS ORDERED: ACETAMINOPHEN650 M3 PO (14:16)
[2016-11-04] MEDS ORDERED: TESSALON PERLE100 M1 PO (14:17)
[2016-11-04] MEDS ORDERED: NICOTINE TRANSD14 MG TOP ×2 (14:19→14:56)
[2016-11-04] MEDS ORDERED: RESTORIL7.5 MG PO ×2 (14:21→14:56)
[2016-11-04] MEDS ORDERED: SYMBICORT INH (14:54)
[2016-11-04] MEDS ORDERED: COMBIVENT U/D3 M1 INH (14:54)
[2016-11-04] MEDS ORDERED: PREDNISOLONE SO10 MG PO (14:55)
[2016-11-04] MEDS ORDERED: APAP325 MG PO (14:55)
[2016-11-04] MEDS ORDERED: BENZONATATE PO (14:56)
[2016-11-04] MEDS ORDERED: NORVASC PO (14:57)
[2016-11-04] MEDS ORDERED: LIPITOR20 MG PO (14:57)
[2016-11-04] MEDS ORDERED: FAMOTIDINE PO (14:57)
[2016-11-04] MEDS ORDERED: HYDROCODON-ACE1 EAC7 PO (14:58)
[2016-11-04] MEDS ORDERED: ASPIRIN81 MG PO (14:58)
[2016-11-04] MEDS ORDERED: MULTIVITAMINS1 EAC3 PO (14:58)
[2016-11-04] MEDS ORDERED: PRILOSEC PO (14:59)
[2016-11-04] MEDS ORDERED: METOPROLOL TAR25 MG PO (18:56)
== END 2016-11-04 19:36 | disposition home or self-care (01) | DRG 957 ==
LOC: CED 03:30 → CEDOF 06:00 → C5B 08:12 → CEDOF 10-31 13:15 → C5B 10-31 13:16 → CEDOF 10-31 14:33 → CICCU2 10-31 15:24 → C5C 11-01 16:35
PROVIDERS: Emergency Medicine; Family Medicine; Internal Medicine; Internal Medicine Nephrology; Surgery; Surgery Vascular Surgery
PROC: B24BYZZ Ultrasonography of Heart with Aorta using Other Contrast (ICD-10-PCS; 2016-10-28)
PROC: 0DBL8ZZ Excision of Transverse Colon, Via Natural or Artificial Opening Endoscopic (ICD-10-PCS; 2016-10-29)
PROC: 0DB68ZX Excision of Stomach, Via Natural or Artificial Opening Endoscopic, Diagnostic (ICD-10-PCS; 2016-10-29 09:15)
PROC: 0DBN8ZZ Excision of Sigmoid Colon, Via Natural or Artificial Opening Endoscopic (ICD-10-PCS; 2016-10-29 09:15)
PROC: 03UK0JZ Supplement Right Internal Carotid Artery with Synthetic Substitute, Open Approach (ICD-10-PCS; 2016-10-31)
PROC: 03CK0ZZ Extirpation of Matter from Right Internal Carotid Artery, Open Approach (ICD-10-PCS; principal; 2016-10-31 10:30)
DX: S22.42XA Multiple fractures of ribs, left side, initial encounter for closed fracture (principal); J96.01 Acute respiratory failure with hypoxia; S36.029A Unspecified contusion of spleen, initial encounter; S27.0XXA Traumatic pneumothorax, initial encounter; E43 Unspecified severe protein-calorie malnutrition; N17.9 Acute kidney failure, unspecified; J44.1 Chronic obstructive pulmonary disease with (acute) exacerbation; E87.2 Acidosis; E87.1 Hypo-osmolality and hyponatremia; I47.1 Supraventricular tachycardia; Z68.1 Body mass index [BMI] 19.9 or less, adult; W19.XXXA Unspecified fall, initial encounter; F10.10 Alcohol abuse, uncomplicated; F17.210 Nicotine dependence, cigarettes, uncomplicated; K21.9 Gastro-esophageal reflux disease without esophagitis; F32.9 Major depressive disorder, single episode, unspecified; G89.4 Chronic pain syndrome; R42 Dizziness and giddiness; R63.4 Abnormal weight loss; I65.23 Occlusion and stenosis of bilateral carotid arteries; M51.36 Other intervertebral disc degeneration, lumbar region; M50.30 Other cervical disc degeneration, unspecified cervical region; K29.50 Unspecified chronic gastritis without bleeding; D12.5 Benign neoplasm of sigmoid colon; D12.3 Benign neoplasm of transverse colon; K64.8 Other hemorrhoids; R62.7 Adult failure to thrive
CPT/HCPCS: 36415; 70450; 71010; 71260; 72125; 73110; 73130; 74177; 74230; 78452; 80048; 80053; 80061; 80076; 80307; 81003; 82274; 82378; 82436; 82550; 82607; 82947; 83036; 83690; 83735; 83935; 84100; 84133; 84300; 84443; 84484; 84550; 85025; 85027; 85610; 85730; 86301; 86850; 86900; 86901; 88305; 88312; 92526; 92610; 92611; 93005; 93017; 93306; 93880; 93882; 94640; 94760; 96361; 96374; 97110; 97116; 97162; 97164; 97166; 97168; 97530; 97535; 99285; A9500; G0480; G8978-GP; G8979-GP; G8980-GP; G8987-GO; G8988-GO; G8989-GO; G8996-GN; G8997-GN; J0330; J0690; J1644; J2250; J2270; J2370; J2405; J2710; J2720; J2785; J2920; J3010; J3411; J3475; Q9967

== ENCOUNTER 2016-11-10 10:58 | Emergency (ER) | payer MEDICARE ==
--- NOTE | ~2016-11-10 | EKG ---
PATIENT: MALENA FRIEND UNIT #: [id number] Ventricular Rate: 66 BPM Atrial Rate: 66 BPM P-R Interval: 126 ms QRS Duration: 90 ms Q-T Interval: 400 ms QTC Calculation(Bezet): 419 ms P Moriah: 42 degrees Calculated R Moriah: 94 degrees Calculated T Moriah: 8 degrees Diagnosis Line: Normal sinus rhythm with sinus arrhythmia Diagnosis Line: Rightward axis Diagnosis Line: Borderline ECG Diagnosis Line: When compared with ECG of 24-OCT-2016 06:29, Diagnosis Line: QRS axis Shifted right Diagnosis Line: T wave amplitude has increased in Lateral leads Diagnosis Line: Confirmed by ARNULFO XIE MD ([id number]) on 11/11/2016 Diagnosis Line: 5:49:28 AM INTERPRETING MD: ROJAS CHA
--- NOTE | ~2016-11-10 | CR72 ---
[facility] A Service of [facility] & [facility] RADIOLOGY TEXT RESULTS PATIENT: MALENA FRIEND LOCATION: [facility] : [birth year] UNIT #: [id number] AGE: [address]: Brennan Durán MD SEX: M ORDER DR: [id number] [place] [address] [place], [place] [address] [id number] MR#: [id number] Acc #: [id number] NAME: MALENA FRIEND : 1945 SEX: M STUDY DATE/TIME: 11/10/2016 11:26 UNIT: [facility] ROOM: STUDY DESCRIPTION: CR Chest Single View Portable Attending Physician: Brennan Durán M.D. Ordering Physician: Brennan Durán M.D. Primary Care Physician: Primary Care Physician No MEDICAL IMAGING REPORT This report is preliminary unless electronic signature is present EXAM Portable chest INDICATION Shortness of breath this morning. Comparison with 10/25/2016 FINDINGS Stable background interstitial changes. No acute-appearing infiltrate. Heart size stable. Postoperative change cervical spine. IMPRESSION Stable background interstitial changes. No acute infiltrate. Dictated by... Cuong Zamora M.D. THIS IS AN ELECTRONICALLY VERIFIED REPORT Cuong Zamora M.D. at 11/11/2016 2:18 PM NUHA/cj TD: 11/11/2016 00:38 JOB #: [id number] MEDICAL IMAGING REPORT Page 1 of 1 COPY
[~2016-11-10 10:58] MED LIST changes: +ACETAMINOPHEN650 M3 PO; +ALBUTEROL MININEB NEB; +APAP325 MG PO; +ASPIRIN81 MG PO; +BENZONATATE PO; +COMBIVENT U/D3 M1 INH; +FAMOTIDINE PO; +HYDROCODON-ACE1 EAC7 PO; +LIPITOR20 MG PO; +METOPROLOL TAR25 MG PO; +MULTIVITAMINS1 EAC3 PO; +NICOTINE TRANSD14 MG TOP; +NORVASC PO; +OMEPRAZOLE20 M2 PO; +PREDNISOLONE SO10 MG PO; +PREDNISONE10 MG PO; +PRILOSEC PO; +PROZAC10 M1 PO; +RESTORIL7.5 MG PO; +SAW PALMETTO160 MG PO; +SYMBICORT INH; +SYMBICORT80 INH; +TESSALON PERLE100 M1 PO; +TYLENOL325 M1 PO
[2016-11-10 12:08] LABS: POC - CKMB 2.1 ng/mL (0.0-7.9); POC - TROPONIN <0.05 ng/mL (<=0.05)
[2016-11-10 12:09] LABS: BASOPHIL# 0.1 X10e3 (0-0.3); EOSINOPHIL# 0.2 X10e3 (0-0.7); EOSINOPHIL% 1.3 % (0.0-7.0); HEMOGLOBIN 12.3 gm/dL (13.0-16.0); LYMPHOCYTE# 1.8 X10e3 (1.0-3.5); LYMPHOCYTE% 14.2 % (17.0-45.0); MEAN CELL VOLUME 100.6 FL (83-96); MEAN CORPUSCULAR HEMOGLOBIN 32.6 PG (28-34); MEAN CORPUSCULAR HGB CONC 32.4 g/dL (30-36); MEAN PLATELET VOLUME 8.2 FL (6.5-11.5); MONOCYTE# 0.9 X10e3 (0-1.0); MONOCYTE% 7.3 % (3.0-12.0); NEUTROPHIL# 9.6 X10e3 (1.5-7.1); NEUTROPHIL% 76.2 % (40-75); PLATELET COUNT 184 X10e3 (140-420); RED BLOOD COUNT 3.77 X10e (3.90-5.60); RED CELL DISTRIBUTION WIDTH 15.8 % (11.0-15.5); WHITE BLOOD COUNT 12.6 X10e3 (4.0-10.5)
[2016-11-10 12:12] LABS: DIFF IND NO
[2016-11-10 12:27] LABS: PARTIAL THROMBOPLASTIN TIME 27.2 SECONDS (23.5-31.3); PROTHROMBIN TIME (PATIENT) 10.1 SECONDS (9.6-11.5)
[2016-11-10 12:40] LABS: ALBUMIN SERUM 3.1 g/dL (3.5-5.0); BILIRUBIN, DIRECT 0.3 mg/dL (0.0-0.2); BILIRUBIN,INDIRECT 0.7 mg/dL (0.0-0.9); CALCIUM SERUM 8.6 mg/dL (8.4-10.2); CREATININE SERUM 0.7 mg/dL (0.6-1.4); POTASSIUM 4.9 mmol/L (3.5-5.1); PROTEIN TOTAL SERUM 6.6 g/dL (6.0-8.3)
[2016-11-10 13:57] LABS: POC - CKMB 1.3 ng/mL (0.0-7.9); POC - TROPONIN <0.05 ng/mL (<=0.05)
== END 2016-11-10 14:35 | disposition home or self-care (01) ==
LOC: CED 10:58
PROVIDERS: Emergency Medicine
DX: M54.2 Cervicalgia (principal); M54.9 Dorsalgia, unspecified; F17.200 Nicotine dependence, unspecified, uncomplicated; J44.9 Chronic obstructive pulmonary disease, unspecified; K21.9 Gastro-esophageal reflux disease without esophagitis; Z88.6 Allergy status to analgesic agent; Z79.899 Other long term (current) drug therapy
CPT/HCPCS: 71010; 80048; 80076; 82553; 84484; 85025; 85379; 85610; 85730; 93005; 94640; 96374; 99284; G0480; J2930